=== PATIENT | male | born 1985 | race Caucasian/White ===

== ENCOUNTER → 2019-12-18 14:58 | Outpatient (CLI) | payer OTHER, SELFPAY ==
[2019-12-18 17:58] LABS: AST(SGOT) 29 U/L (15-37); Alanine Aminotransfer ALT/SGPT 74 U/L (16-61); Albumin, Serum 3.9 g/dL (3.2-5.0); Alkaline Phosphatase 116 U/L (45-117); Anion Gap 6 (5-15); BUN 10 mg/dL (7-18); BUN/Creat Ratio 10.8 RATIO (10-20); CRP 3.34 mg/L (0.0-3.0); Calcium,Total 8.5 mg/dL (8.5-10.1); Chloride 103 mmol/L (98-107); Creatinine, Serum 0.93 mg/dL (0.70-1.30); EST Glomerular Filtration Rate 98 mL/min (>60); Est Glom Filt Rate - Afr Amer 119 mL/min (>60); Globulin 3.8 g/dL (2.2-4.2); Glucose 89 mg/dL (74-106); Potassium 3.7 mmol/L (3.5-5.1); Protein, Total 7.7 g/dL (6.4-8.2); Sodium Level 138 mmol/L (136-145)
[2019-12-18 18:01] LABS: Hematocrit 48.2 % (40-54); Hemoglobin 15.8 g/dL (13.0-16.5); Mean Corp Hgb Conc 32.8 g/dL (32-36); Mean Corpuscular Hgb 29.4 pg (27.0-32.0); Mean Corpuscular Volume 89.8 fL (80-94); Mean Platelet Vol. 10.2 fl (6.2-12.0); Platelet Count 287 K/mm3 (150-450); RBC Distribution Width CV 11.8 % (11.6-14.6); Red Blood Count 5.37 M/mm3 (4.6-6.2); White Blood Count 8.1 K/mm3 (4.4-11.0)
[2019-12-18 18:07] LABS: Erythrocyte Sedimentation Rate 18 mm/hr (0-15)
== END ==
PROVIDERS: PCP Internal Medicine; Referring Provider Internal Medicine Gastroenterology; Visit Provider Internal Medicine Gastroenterology
DX: K51.90 Ulcerative colitis, unspecified, without complications (principal)
CPT/HCPCS: 36415; 80053; 85027; 85652; 86140

== ENCOUNTER 2021-08-16 14:00 | Outpatient (CLI) | payer OTHER, SELFPAY ==
[2021-08-16 15:33] LABS: Hematocrit 45.2 % (40-54); Hemoglobin 15.8 g/dL (13.0-16.5); Mean Corpuscular Hgb 29.9 pg (27.0-32.0); Mean Corpuscular Volume 85.4 fL (80-94); Mean Platelet Vol. 9.8 fl (6.2-12.0); Platelet Count 225 K/mm3 (150-450); RBC Distribution Width CV 11.8 % (11.6-14.6); RBC Distribution Width SD 36.6 fl (35.1-43.9); Red Blood Count 5.29 M/mm3 (4.6-6.2); White Blood Count 7.6 K/mm3 (4.4-11.0)
[2021-08-16 15:38] LABS: Erythrocyte Sedimentation Rate 9 mm/hr (0-20)
[2021-08-16 16:36] LABS: AST(SGOT) 30 U/L (15-37); Alanine Aminotransfer ALT/SGPT 47 U/L (16-61); Albumin, Serum 3.7 g/dL (3.2-5.0); Alkaline Phosphatase 71 U/L (45-117); Anion Gap 3 (5-15); BUN 12 mg/dL (7-18); BUN/Creat Ratio 14.4 RATIO (10-20); CRP < 2.90 mg/L (0.0-3.0); Calcium,Total 8.7 mg/dL (8.5-10.1); Chloride 105 mmol/L (98-107); Creatinine, Serum 0.83 mg/dL (0.70-1.30); EST Glomerular Filtration Rate 110 mL/min (>60); Est Glom Filt Rate - Afr Amer 133 mL/min (>60); Globulin 3.7 g/dL (2.2-4.2); Glucose 86 mg/dL (74-106); Potassium 3.6 mmol/L (3.5-5.1); Protein, Total 7.4 g/dL (6.4-8.2); Sodium Level 138 mmol/L (136-145)
== END 2021-08-16 23:59 | disposition home or self-care (01) ==
LOC: MTLAB 14:03
PROVIDERS: PCP Internal Medicine; Referring Provider Internal Medicine Gastroenterology; Visit Provider Internal Medicine Gastroenterology
DX: K51.90 Ulcerative colitis, unspecified, without complications (principal)
CPT/HCPCS: 36415; 80053; 85027; 85652; 86140

== ENCOUNTER 2022-10-30 15:20 | Emergency (ER) | payer OTHER, SELFPAY ==
[2022-10-30 15:21] VITALS: BP 127/83; PULSE 77; RESP 18; TEMP 35.3; O2SAT 97; BMI 41.3
--- NOTE | 2022-10-30 15:36 | EX.ED.DYSGE1 ---
HPI History of Present Illness Chief Complaint: Syncope COUNTS INCLUDE 234 BEDS AT THE [facility] PFS Medical History no medical history Home Medications NK 10/30/22 [History Last Taken Unknown] Allergy/AdvReac Type Severity Reaction Status Date / Time No Known Allergies Allergy Verified 10/30/22 15:22 Social History Smoking Status: Never smoker EXAM Physical Exam Const Vital Signs: 10/30/22 15:21 10/30/22 15:26 10/30/22 16:17 Temperature 95.6 F L Temperature Source Temporal Pulse Rate 77 65 Respiratory Rate 18 14 Respiratory Effort Short of Breath Respiratory Pattern Normal Blood Pressure 127/83 H 125/85 H Blood Pressure Mean 97 98 Pulse Ox 97 92 Oxygen Delivery Method Room Air Room Air 10/30/22 17:06 10/30/22 17:06 10/30/22 18:35 Temperature Temperature Source Pulse Rate 60 60 Respiratory Rate 14 17 Respiratory Effort Respiratory Pattern Blood Pressure 119/87 H 113/82 H Blood Pressure Mean 97 92 Pulse Ox 93 93 96 Oxygen Delivery Method Room Air Room Air Room Air MDM MDM MDM Narrative Medical decision making narrative: HISTORY OF PRESENT ILLNESS: 37-year-old male here with concern for going to pass out. The patient states he developed acute onset of lightheadedness, feel like he is got a pass out approximate hour prior to arrival. Denies any shortness of breath. Does note some chest discomfort and left shoulder discomfort. Denies vomiting. Denies any loss of consciousness. The patient denies recent surgery in the last 4 weeks or immobilization in the last 3 days, denies previous diagnosis of DVT or PE, hemoptysis, unilateral leg swelling or malignancy with treatment the last 6 months. No estrogen use noted. He denies family history of early cardiac . He denies any drug use such as cocaine or methamphetamine. Denies any lower extremity edema. Denies any recent volume loss such as vomiting or diarrhea. Denies any bleeding diathesis. Denies any recent cough fever chills REVIEW OF SYSTEMS: Pertinent positives: Lightheaded, near syncope Pertinent negatives: Syncope, headache, shortness of breath, lower extremity edema, focal weakness PHYSICAL EXAM: Nursing triage notes reviewed, Vital signs reviewed Constitutional: please see mdm HENT: MMM Eyes: Pupils equal round and reactive to light, Extraocular muscles intact Neck: No stridor, no JVD, full neck ROM Lungs: Clear to auscultation, No wheezing or rales. No increased work of breathing, no conversational dyspnea, no accessory muscle use, no nasal flaring. No respiratory distress noted Heart: Regular rate and rhythm, No murmurs, No rubs and No gallops, 2+ distal pulses (radial, femoral, posterior tibial) in all extremities Abdomen: Soft, there is no tenderness, rigidity, rebound or guarding, no obvious peritoneal signs, no palpable pulsatile abdominal masses, no auscultated abdominal bruit : No CVAT Extremities: No edema Neuro: Alert and oriented x3, neuro exam at baseline, cranial nerves II through XII are intact. No pain with extraocular muscle movement. There is negative test of skew. Normal speech. 5 of 5 strength in upper and lower extremities in flexion extension. Intact sensation to light touch in upper and lower extremity dermatomes. No truncal or extremity ataxia. No dysdiadochokinesia. Normal gait. 2+ reflexes. No meningeal signs. Negative Babinski. NIH of 0 Skin: No rash or lesions noted MEDICAL DECISION MAKING: Chief Complaint: Lightheaded, feeling like he is going to pass out External records reviewed: No recent ED visits or hospitalizations MDM Narrative: Patient was hemodynamically stable, afebrile, nontoxic-appearing. Exam without focal neurologic deficits. No focal cardiopulmonary abnormalities I considered the following differential diagnosis: Arrhythmia, anemia, ED electrolyte abnormality, , dehydration, PE I considered PE as a potential cause of the patient's near syncope however he had no risk factors. PERC negative, low risk Wells score, low clinical gestalt. Given his low risk I did not think it was necessary at this time to obtain a CTA of the chest. I gave the patient 1 L normal saline for resuscitation. I ordered labs and images to further elucidate the etiology of the patient's complaints. Labs images were remarkable for no evidence of severe anemia. BMP showed hypokalemia, there is no significant anion gap or SUJATHA. Troponin was negative x2. There are no signs of any life limiting etiology. I replace patient's potassium. Encourage potassium rich diet. Encouraged outpatient follow-up. The patient has no structural heart disease, no arrhythmia on EKG, no telemetry events, normal vitals, no focal cardiopulmonary normality he is not significantly anemic and as such he is appropriate for outpatient follow-up for potentially an echocardiogram or Holter monitor. This can be done safely as an outpatient. Factors affecting care: Hypokalemia Social determinants of health: Never smoker History obtained from others: The patient significant other Shared decision making: I will have a discussion with the patient and or visitors regarding risk/benefits of further testing or admission. They will be made aware of of the risk/benefits inherent in this decision they will be given the opportunity to voice understanding. Consults: None Lab Data Attestation: I reviewed the patient's lab results. Lab results narrative: EKG with normal sinus rhythm, left axis deviation, normal intervals, no STEMI BMP with hypokalemia, no anion gap to suggest endorgan hypoperfusion, no acute kidney Troponin is negative, no evidence of myocardial ischemia, delta troponin negative (0% 90 day mortality) CBC with leukocytosis suggestive of systemic inflammation, no anemia or thrombocytopenia noted Labs: Laboratory Results - last 24 hr 10/30/22 10/30/22 10/30/22 15:25 15:25 17:43 WBC 11.2 H RBC 5.40 Hgb 16.0 Hct 47.3 MCV 87.6 MCH 29.6 MCHC 33.8 RDW Std Deviation 37.3 RDW Coeff of Garcia 11.8 Plt Count 263 MPV 10.3 Immature Gran % (Auto) 0.900 Neut % (Auto) 44.4 L Lymph % (Auto) 38.9 [place] % (Auto) 12.8 H Eos % (Auto) 2.3 Baso % (Auto) 0.7 Absolute Neuts (auto) 5.0 Absolute Lymphs (auto) 4.36 Nucleated RBC % 0 Sodium 141 Potassium 3.0 L Chloride 108 H Carbon Dioxide 22.0 Anion Gap 11 BUN 11 Creatinine 1.04 Estim Creat Clear Calc 96.31 Est GFR (MDRD) Af Amer 103 Est GFR (MDRD) Non-Af 85 BUN/Creatinine Ratio 10.6 Glucose 129 H Calcium 8.9 Troponin I High Sens 3 3 Radiography Chest X-Ray - ED: Read by ED Physician Diagnostic Testing: Clinical Impression(s) from Imaging Studies Chest X-Ray 10/30/22 16:20 IMPRESSION: No definite acute or significant abnormality seen. Electronically Signed: Jeancarlos Frausto MD at 16:33 EDT , I have personally reviewed the patient's chest x-ray. Chest x-ray is unremarkable for pulmonary edema, pneumothorax, pneumonia or focal cardiopulmonary abnormality. Discharge Plan Triage Chief Complaint: Syncope ED Provider: Giovany Fernández Dx/Rx/DC Orders Clinical Impression: Near syncope, Acute hypokalemia Instructions: Causes of Syncope, High Potassium Diet Dc, ED Hypokalemia Prescriptions: No Action NK Primary Care Provider: Francie Xiao Referrals: Francie Xiao, [Primary Care Provider] - Activity Restrictions/Additional Instructions: Thank you for trusting us with your care today! Please take Tylenol (2 pills, 650 mg), ibuprofen (2 pills, 400 mg) every 6 hours as needed for pain and fever control. Please add potassium rich foods to your diet which include kale, leafy green vegetables, cantaloupe or bananas. Electrolyte rehydration solution such as Pedialyte, body armor, Gatorade also contain potassium. Please consider adding these to your diet as tolerated. Please return to the emergency department if your symptoms change or worsen. Please follow with your primary care physician for further outpatient evaluation and management. Disposition Disposition: Home, Self Care Discharge Date/Time: 10/30/22 19:06
--- NOTE | 2022-10-30 16:09 | EKG12_ITS ---
Test Reason : SYNCOPE Blood Pressure : / mmHG Vent. Rate : 077 BPM Atrial Rate : 077 BPM P-R Int : 188 ms QRS Dur : 102 ms QT Int : 406 ms P-R-T Axes : 032 -40 009 degrees QTc Int : 459 ms Normal sinus rhythm Left axis deviation Pulmonary disease pattern Abnormal ECG When compared with ECG of 25-JUN-2010 17:12, No significant change was found Confirmed by AVA HARRELL, SABINA ([id number]), editor magazine DK JOHNSON ([id number]) on 11/02/2022 8:36:13 AM Referred By: SONY Confirmed By:SABINA ESCALANTE MD
[2022-10-30] MEDS: 0.9% Normal Saline 1,000 ML 1000 ML IV (16:16)
[2022-10-30 16:17] VITALS: BP 125/85; PULSE 65; RESP 14; O2SAT 92
--- NOTE | 2022-10-30 16:20 | RAD_ITS ---
STUDY: X-RAY CHEST REASON FOR EXAM: Male, 37 years old. chest pain TECHNIQUE: Single AP portable view of the chest. COMPARISON: None. FINDINGS: The lungs are clear and expanded. There is no demonstrated pleural abnormality. Normal size heart. Normal mediastinum and caterina. Normal visualized pulmonary arteries. Normal visualized aortic arch and descending thoracic aorta. Normal visualized thoracic spine. Normal visualized ribs, clavicles, and shoulders. There is no demonstrated abnormality of the visualized soft tissue structures of the upper abdomen. RAD/Chest 1 View (Portable) IMPRESSION: No definite acute or significant abnormality seen. Electronically Signed: Jeancarlos Frausto MD at 16:33 EDT ,
[2022-10-30 16:28] LABS: Absolute Lymphocyte Count 4.36 X10^3/uL (0.83-4.51); Basophil# 0.08 X10^3/uL; Basophil% 0.7 % (0-1); Eosinophil# 0.26 X10^3/uL; Eosinophils% 2.3 % (0-5); Hematocrit 47.3 % (40-54); Lymphocyte # 4.36 X10^3/ul (0.83-4.51); Lymphocyte % 38.9 % (19-41); Mean Corp Hgb Conc 33.8 g/dL (32-36); Mean Corpuscular Hgb 29.6 pg (27.0-32.0); Mean Corpuscular Volume 87.6 fL (80-94); Mean Platelet Vol. 10.3 fl (6.2-12.0); Monocyte# 1.44 X10^3/uL; Monocyte% 12.8 % (0-10); NRBC Flagged by Analyzer 0 % (0-5); Neutrophil # 4.97 X10^3/uL (2.7-7.7); Neutrophil % 44.4 % (47-70); Platelet Count 263 K/mm3 (150-450); RBC Distribution Width CV 11.8 % (11.6-14.6); RBC Distribution Width SD 37.3 fl (35.1-43.9); White Blood Count 11.2 K/mm3 (4.4-11.0)
[2022-10-30 17:04] LABS: Anion Gap 11 (5-15); BUN 11 mg/dL (7-18); BUN/Creat Ratio 10.6 RATIO (10-20); Calcium,Total 8.9 mg/dL (8.5-10.1); Chloride 108 mmol/L (98-107); Creatinine, Serum 1.04 mg/dL (0.70-1.30); EST Glomerular Filtration Rate 85 mL/min (>60); Est Glom Filt Rate - Afr Amer 103 mL/min (>60); Estimated Creatinine Clearance 96.31 ml/min; Glucose 129 mg/dL (74-106); Sodium Level 141 mmol/L (136-145); Troponin-I HS (w/2H Reflex) 3 pg/mL (3.0-78.0)
[2022-10-30 17:06] VITALS: BP 119/87; PULSE 60; RESP 14; O2SAT 93
[2022-10-30] MEDS: Potassium Chloride Oral Tablet 20 MEQ 40 MEQ PO (17:47)
[2022-10-30 18:22] LABS: Reflex Troponin-HS? (from REC) Y
[2022-10-30 18:35] VITALS: BP 113/82; PULSE 60; RESP 17; O2SAT 96
[2022-10-30 18:38] LABS: Troponin-I HS 3 pg/mL (3.0-78.0)
== END 2022-10-30 19:06 | disposition home or self-care (01) ==
PROVIDERS: Emergency Provider Emergency Medicine; PCP Internal Medicine; Visit Provider Emergency Medicine
DX: R55 Syncope and collapse (principal); E87.6 Hypokalemia
CPT/HCPCS: 71045; 80048; 84484; 85025; 93005; 96360; 99284; J7030; A4216

== ENCOUNTER 2022-11-29 10:34 | Emergency (ER) | payer OTHER, SELFPAY ==
[2022-11-29 10:35] VITALS: BP 138/98; PULSE 64; RESP 24; TEMP 35.9; O2SAT 98; BMI 41.3
--- NOTE | 2022-11-29 10:47 | EKG12_ITS ---
Test Reason : SOB Blood Pressure : / mmHG Vent. Rate : 057 BPM Atrial Rate : 057 BPM P-R Int : 184 ms QRS Dur : 100 ms QT Int : 420 ms P-R-T Axes : 022 -26 023 degrees QTc Int : 408 ms Sinus bradycardia Otherwise normal ECG Confirmed by JONI HRARELL, SHAYNA ([id number]), editor & co founder DK JOHNSON ([id number]) on 12/02/2022 9:53:31 AM Referred By: Confirmed By:ZAIDA QUINONES MD
--- NOTE | 2022-11-29 10:48 | ED.VIS.DYS ---
HPI History of Present Illness Chief Complaint: Shortness of Breath Narrative Narrative: 37-year-old male past medical history of anxiety and panic attacks, is currently taking escitalopram and lorazepam as needed, presents with panic attack-like symptoms. He states he was seen in the emergency department 3 weeks ago and diagnosed with hypokalemia. He is followed up with his primary care provider who recommended that he follow-up with psychiatry. He presents today because he noticed that his heart rate was lower than usual, and he feels tightness in his chest, and overall anxiety that something is wrong. He states he is short of breath but denies any fevers or chills, no cough, this is the same way that he has been feeling over the past few weeks. [facility] Medical History (Updated 11/29/22 @ 12:12 by Sreekanth Gillespie MD) Anxiety Home Medications albuterol sulfate 90 mcg/actuation aerosol inhaler (Ventolin HFA) 1 - 2 puff inhalation Q4H PRN PRN Wheezing #1 ea 11/29/22 [Rx Last Taken Unknown] azithromycin 250 mg tablet (Zithromax Z-Maurilio) See Rx Instructions PO .COMPLEX #6 tabs 11/29/22 [Rx Last Taken Unknown] escitalopram oxalate 5 mg tablet 5 mg PO DAILY 11/29/22 [History Last Taken Unknown] lorazepam 0.5 mg tablet 0.5 mg PO DAILY 11/29/22 [History Last Taken Unknown] Allergy/AdvReac Type Severity Reaction Status Date / Time No Known Allergies Allergy Verified 11/29/22 10:39 Social History Smoking Status: Never smoker ROS ROS ED ROS Narrative Constitutional: No fever, no chills. HEENT: No sore throat. No neck pain. No loss of vision. No rhinorrhea. Cardiovascular: Positive chest tightness chest pain. Occasional palpitations. No pedal edema. Respiratory: No cough, positive shortness of breath. Abdominal: No abdominal pain. No nausea. No vomiting. Genitourinary: No dysuria. No hematuria. Musculoskeletal: No myalgias. No arthralgias. Neurologic: No headaches. No dizziness. No lightheadedness. Skin: No rash. No change in color. Psychiatric: No depression. Positive anxiety. Positive panic attacks. Overall feeling that something is wrong. EXAM Physical Exam Narrative Exam Narrative: Afebrile. Vital signs noted. HEENT: Normocephalic. Atraumatic. PERRL, EOMI. Neck soft and supple. No point tenderness or step off. Cardiovascular: Regular rate and rhythm. No murmurs, rubs, or gallops appreciated. Respiratory: No tachypnea. Lungs clear to auscultation bilaterally. Gastrointestinal: Abdomen soft, nontender, with normoactive bowel sounds. No rebound or guarding. Neurological: Awake. Alert. Nonfocal, nonlateralizing. Skin: No rash. Normal color. No pallor. Musculoskeletal: No pedal edema. Full range of motion extremities. Psychiatric: Mild anxiety Const Vital Signs: 11/29/22 10:35 11/29/22 11:12 Temperature 96.7 F L Temperature Source Temporal Pulse Rate 64 Respiratory Rate 24 H Respiratory Effort Short of Breath Respiratory Depth Normal Respiratory Pattern Normal Blood Pressure 138/98 H Blood Pressure Mean 111 Pulse Ox 98 Oxygen Delivery Method Room Air Room Air MDM MDM MDM Narrative Medical decision making narrative: I reviewed the patient's prior ED visit. He is currently taking a benzodiazepine as needed and is on long-term medication. His symptoms do sound more like anxiety and panic attacks. I have low suspicion for pulmonary embolism as he has a normal pulse of 64, and his pulse ox is 98% on room air. While he has slight elevation of his blood pressure at 138/98, this could be secondary to anxiety. I will repeat an EKG along with laboratory work to make sure he does not have a hypokalemia or other electrolyte abnormality. I feel that a single high-sensitivity troponin would help rule out coronary artery disease as this is greater than a 6-hour troponin. He was bolused normal saline 1 L intravenously. EKG was in pain and interpreted by myself, demonstrates normal sinus rhythm and bradycardia without acute ST changes, no STEMI. I reviewed his laboratory work from today and he has a normal white count of 5.5, hemoglobin 16.0, normal platelet count of 221. Electrolyte panel shows normal potassium of 3.6 with chloride slightly elevated at 109 which I think is nonspecific, normal BUN and normal creatinine. Glucose is appropriately elevated at 128 with a normal anion gap of 5. I do not feel he is in diabetic ketoacidosis. Additionally, his high-sensitivity troponin is 5. This is greater than a 6-hour troponin. I do not feel that serial enzymes are indicated. In the interpretation of his chest x-ray, my individual interpretation shows no evidence of pneumothorax. I reviewed the radiology report which shows increased lung markings in the left upper lobe. Patient does state that he has had a cough over the last few weeks, but he does not have a fever or white count. I discussed with him atypical pneumonia. He will be given an albuterol inhaler for his shortness of breath and treated with azithromycin for 5 days. He will follow-up with his primary care provider for repeat chest x-ray to show resolution of the left upper lobe increased lung markings. I am not concerned for pulmonary embolism and think that a lot of his symptoms are related to anxiety. He will follow-up with psychiatry as well. He feels well and will be discharged. Return instructions were reviewed. Disposition is discharged home in stable condition. History & Record Review Discussion w/independent historian: Patient Additional record(s) reviewed:: Prior ED visit and Prior labs Lab Data Attestation: I reviewed the patient's lab results. Labs: Laboratory Results - last 24 hr 11/29/22 11/29/22 11:15 11:15 WBC 5.5 RBC 5.37 Hgb 16.0 Hct 47.4 MCV 88.3 MCH 29.8 MCHC 33.8 RDW Std Deviation 37.7 RDW Coeff of Garcia 11.9 Plt Count 221 MPV 9.6 Immature Gran % (Auto) 1.100 H Neut % (Auto) 65.6 Lymph % (Auto) 19.3 [place] % (Auto) 10.3 H Eos % (Auto) 3.2 Baso % (Auto) 0.5 Absolute Neuts (auto) 3.6 Absolute Lymphs (auto) 1.07 Nucleated RBC % 0 Sodium 139 Potassium 3.6 Chloride 109 H Carbon Dioxide 25.0 Anion Gap 5 BUN 12 Creatinine 0.95 Estim Creat Clear Calc 105.43 Est GFR (MDRD) Af Amer 114 Est GFR (MDRD) Non-Af 94 BUN/Creatinine Ratio 12.6 Glucose 128 H Calcium 8.8 Troponin I High Sens 5 Radiography Diagnostic Testing: Clinical Impression(s) from Imaging Studies Chest X-Ray 11/29/22 11:17 IMPRESSION: Focal increased markings in the left upper lobe. Follow-up is recommended. Electronically Signed: Hola Clifford MD at 12:01 EDT , Discharge Plan Triage Chief Complaint: Shortness of Breath ED Provider: Sreekanth Gillespie Dx/Rx/DC Orders Clinical Impression: Anxiety, SOB (shortness of breath) Prescriptions: New azithromycin [Zithromax Z-Maurilio] 250 mg tablet See Rx Instructions .ROUTE .COMPLEX Qty: 6 0RF Rx Instructions: For 250 mg dose pack: take 500 mg today (day 1), then 250 mg for 4 days (days 2-5) albuterol sulfate [Ventolin HFA] 90 mcg/actuation HFA aerosol inhaler 1 - 2 puff inhalation Q4H PRN PRN (Reason: Wheezing) Qty: 1 0RF No Action lorazepam 0.5 mg tablet 0.5 mg PO DAILY Label Comments: TAKE 1 TABLET BY MOUTH EVERY DAY escitalopram oxalate 5 mg tablet 5 mg PO DAILY Label Comments: TAKE 1 TABLET BY MOUTH EVERY DAY Primary Care Provider: Sadaf Morton Referrals: Francie Xiao DO [Med Staff - [facility] [employer]] - Sadaf Morton, DOUPER-C [Primary Care Provider] - 3-5 Days if not improving Disposition Disposition: Home, Self Care
[2022-11-29] MEDS: 0.9% Normal Saline 1,000 ML 999 ML IV (11:16)
--- NOTE | 2022-11-29 11:17 | RAD_ITS ---
STUDY: X-RAY CHEST REASON FOR EXAM: Male, 37 years old. Shortness of Breath TECHNIQUE: Single AP portable view of the chest. COMPARISON: Comparison is made with prior study dated October 30, 2022. FINDINGS: EKG electrodes are seen. Focal increased markings are seen in the left upper lobe. This has progressed as compared to prior study. Radiographic follow-up is recommended. There is no demonstrated pleural abnormality. Normal size heart. Normal mediastinum and caterina. Normal visualized pulmonary arteries. Normal visualized aortic arch and descending thoracic aorta. Normal visualized thoracic spine. Normal visualized ribs, clavicles, and shoulders. There is no demonstrated abnormality of the visualized soft tissue structures of the upper abdomen. RAD/Chest 1 View (Portable) IMPRESSION: Focal increased markings in the left upper lobe. Follow-up is recommended. Electronically Signed: Hola Clifford MD at 12:01 EDT ,
[2022-11-29 11:22] LABS: Absolute Lymphocyte Count 1.07 X10^3/uL (0.83-4.51); Absolute Neutrophil Count 3.6 X10^3/uL (2.0-7.7); Basophil# 0.03 X10^3/uL; Basophil% 0.5 % (0-1); Eosinophil# 0.18 X10^3/uL; Eosinophils% 3.2 % (0-5); Hematocrit 47.4 % (40-54); Lymphocyte # 1.07 X10^3/ul (0.83-4.51); Lymphocyte % 19.3 % (19-41); Mean Corp Hgb Conc 33.8 g/dL (32-36); Mean Corpuscular Hgb 29.8 pg (27.0-32.0); Mean Corpuscular Volume 88.3 fL (80-94); Mean Platelet Vol. 9.6 fl (6.2-12.0); Monocyte# 0.57 X10^3/uL; Monocyte% 10.3 % (0-10); NRBC Flagged by Analyzer 0 % (0-5); Neutrophil # 3.63 X10^3/uL (2.7-7.7); Neutrophil % 65.6 % (47-70); Platelet Count 221 K/mm3 (150-450); RBC Distribution Width CV 11.9 % (11.6-14.6); RBC Distribution Width SD 37.7 fl (35.1-43.9); Red Blood Count 5.37 M/mm3 (4.6-6.2); White Blood Count 5.5 K/mm3 (4.4-11.0)
[2022-11-29 11:38] LABS: Anion Gap 5 (5-15); BUN 12 mg/dL (7-18); BUN/Creat Ratio 12.6 RATIO (10-20); Calcium,Total 8.8 mg/dL (8.5-10.1); Chloride 109 mmol/L (98-107); Creatinine, Serum 0.95 mg/dL (0.70-1.30); EST Glomerular Filtration Rate 94 mL/min (>60); Est Glom Filt Rate - Afr Amer 114 mL/min (>60); Estimated Creatinine Clearance 105.43 ml/min; Glucose 128 mg/dL (74-106); Potassium 3.6 mmol/L (3.5-5.1); Sodium Level 139 mmol/L (136-145); Troponin-I HS 5 pg/mL (3.0-78.0)
[2022-11-29 12:49] VITALS: RESP 16
== END 2022-11-29 12:49 | disposition home or self-care (01) ==
PROVIDERS: Emergency Provider Emergency Medicine; PCP Nurse Practitioner Family; Visit Provider Emergency Medicine
DX: F41.9 Anxiety disorder, unspecified (principal); R06.02 Shortness of breath; Z79.899 Other long term (current) drug therapy
CPT/HCPCS: 71045; 80048; 84484; 85025; 93005; 99284; J7030; A4216

== ENCOUNTER → 2022-12-19 | Outpatient (CLI) | payer OTHER, SELFPAY ==
[2022-12-19 10:00] LABS: Absolute Lymphocyte Count 2.18 X10^3/uL (0.83-4.51); Absolute Neutrophil Count 3.3 X10^3/uL (2.0-7.7); Basophil# 0.04 X10^3/uL; Basophil% 0.6 % (0-1); Eosinophil# 0.33 X10^3/uL; Eosinophils% 4.9 % (0-5); Hematocrit 48.3 % (40-54); Hemoglobin 16.5 g/dL (13.0-16.5); Lymphocyte # 2.18 X10^3/ul (0.83-4.51); Lymphocyte % 32.3 % (19-41); Mean Corp Hgb Conc 34.2 g/dL (32-36); Mean Corpuscular Hgb 29.9 pg (27.0-32.0); Mean Corpuscular Volume 87.7 fL (80-94); Mean Platelet Vol. 9.7 fl (6.2-12.0); Monocyte# 0.87 X10^3/uL; Monocyte% 12.9 % (0-10); NRBC Flagged by Analyzer 0 % (0-5); Neutrophil # 3.27 X10^3/uL (2.7-7.7); Neutrophil % 48.6 % (47-70); Platelet Count 237 K/mm3 (150-450); RBC Distribution Width CV 11.9 % (11.6-14.6); RBC Distribution Width SD 38.1 fl (35.1-43.9); Red Blood Count 5.51 M/mm3 (4.6-6.2); White Blood Count 6.7 K/mm3 (4.4-11.0)
[2022-12-19 10:40] LABS: Vitamin B12 636 pg/mL (211-911); Vitamin D,25 Hydroxy 28.8 ng/mL
[2022-12-19 11:02] LABS: ALB/GLOB Ratio 0.9 RATIO (0.9-2.4); AST(SGOT) 32 U/L (15-37); Alanine Aminotransfer ALT/SGPT 74 U/L (16-61); Albumin, Serum 3.6 g/dL (3.2-5.0); Alkaline Phosphatase 76 U/L (45-117); Anion Gap 4 (5-15); BUN 11 mg/dL (7-18); Calcium,Total 8.1 mg/dL (8.5-10.1); Chloride 109 mmol/L (98-107); Cholesterol 169 mg/dL (200); Creatinine, Serum 0.91 mg/dL (0.70-1.30); EST Glomerular Filtration Rate 98 mL/min (>60); Est Glom Filt Rate - Afr Amer 119 mL/min (>60); Globulin 3.8 g/dL (2.2-4.2); Glucose 92 mg/dL (74-106); High Density Lipoprotein 43 mg/dL; Potassium 3.8 mmol/L (3.5-5.1); Protein, Total 7.4 g/dL (6.4-8.2); Sodium Level 138 mmol/L (136-145); Thyroid Stim Hormone (TSH) 1.81 uIU/mL (0.358-3.74); Triglycerides 119 mg/dL; Very Low Density Lipoprotein 24 mg/dL (5-40)
== END | disposition home or self-care (01) ==
LOC: MTLAB 08:20
PROVIDERS: PCP Nurse Practitioner Family; Referring Provider Nurse Practitioner Family; Visit Provider Nurse Practitioner Family
DX: E87.6 Hypokalemia (principal); R79.89 Other specified abnormal findings of blood chemistry; Z83.3 Family history of diabetes mellitus; Z13.21 Encounter for screening for nutritional disorder
CPT/HCPCS: 36415; 80053; 80061; 82306; 82607; 82746; 84443; 85025

== ENCOUNTER 2022-12-26 08:00 | Outpatient (RCR) | payer OTHER, SELFPAY ==
--- NOTE | 2022-12-26 09:00 | BH.COMM ---
Communication Note Communication with Client Communication Note: Met with pt and completed initial paperwork. No significant changes since pre-admission screening. [place] Suicide Screening completed with low risk. Consulted with Dr. Mendes with plan to admit to IOP with dx of F41.0
--- NOTE | 2022-12-26 09:00 | BH.SGPN.GN ---
Behaviors/Verbalizations/Mental Status: []Pt alert and oriented, neatly dressed and groomed. Eye contact good. Motor activity appropriate. Speech within normal limits. Affect congruent, mood nervous and hopeful. Thoughts linear, logical, no signs of hallucinations or delusions. Reviewed pt?s symptom tracker, no risk for suicidal ideation, plan, or intent as 12/26/22 Client Response/Progress/Benefit: []Pt responded well to session, attentive and engaged. Pt reports feeling anxious this morning as it is pt's first day of IOP tx. Pt shared he hopes that completing the program will show reduced panic attacks and anxiety for pt. Pt shared he has been struggling with panic attacks since the beginning of summer and this triggers a lot of guilt and negative self-talk. Pt shared he is beginning to learn what can help pt and pt is using skills like using noise canceling headphones to help with car rides. Pt appeared to benefit from reflecting on application of healthy coping skills. Pt will continue IOP tx to prevent decompensation, increase distress tolerance skills, and reduce safety behaviors that reinforce anxiety. Narrative Note: []
--- NOTE | 2022-12-26 10:15 | BH.SGPN.GN ---
Behaviors/Verbalizations/Mental Status: [] Eye contact is good. Motor activity is appropriate. Appearance is casual. Speech is Appropriate. Mood is anxious. Affect is congruent. Thoughts are linear and logical. No evidence of psychosis. Client Response/Progress/Benefit: [] Limited participation in group discussions however did complete worksheets on the topic. Attentive during psychoeducation. Attentive during interactive discussion on types of support. Group identified several forms of support which included; friends, family, therapy, professionals, support groups, co-workers, social media, spirituality, medications, local agencies, etc. Pt Attentive during the group discussion on the importance of support which they identified leads to; accountability, can motivate, decreased loneliness, connection with others, improved relationships, increased self-confidence, can lessen one's stress and responsibilities, and is fun/ distracting. Patient identified the obstacles/barriers to seeking support and utilizing the support they currently have in place which included fear of failure, feeling inadequate, afraid of hurting someone's view of me, struggles make me less of who I want to be. Benefited from increased awareness of healthy supports and the importance of balanced support. Will continue in IOP to prevent decompensation, stabilize anxiety, decrease intrusive thoughts, and stablize mood. Narrative Note: []
--- NOTE | 2022-12-26 11:15 | BH.SGPN.GN ---
Behaviors/Verbalizations/Mental Status: []Client alert and oriented, casually dressed and groomed. Eye contact good. Motor activity appropriate. Speech within normal limits. Affect congruent, mood depressed and anxious. Thoughts linear, logical, no signs of hallucinations or delusions. Client Response/Progress/Benefit: [] Client was a semi-active participant throughout AEB contributing some to group discussion, participating in the activity, and taking notes. Client provided input during discussion on the types of support our supports can provide (social, emotional, tangible, and informational). Able to identify the types of support pt?s own support system provides for them. Client reported gaining awareness that they could benefit from more emotional specific support. Shared this will help to provide him with having non-judgmental supports he can lean on when experiencing increased anxiety. Client identified steps to achieve this as identifying warning signs for anxiety, determining which supports would be best equipped to help in this situation, and challenging himself to increase comfort in reaching out. Client seemed to benefit from identifying support areas client could benefit from improving. Recommended to continue IOP tx to increase healthy coping repertoire, promote mood stability, and improve overall functioning. Narrative Note: []
--- NOTE | 2022-12-28 09:00 | BH.SGPN.GN ---
Behaviors/Verbalizations/Mental Status: []Pt alert and oriented, casually dressed and groomed. Eye contact good. Motor activity appropriate. Speech within normal limits. Affect congruent, mood anxious and euthymic. Thoughts linear, logical, no signs of hallucinations or delusions. Reviewed pt?s symptom tracker, no risk for suicidal ideation, plan, or intent as 12/28/22 Client Response/Progress/Benefit: []Pt responded well to session, open to contributing with group and engaged. Pt reports feeling nervous this morning and pt stated he plans to listen to a podcast this afternoon to aid in reducing anxiety associated with his upcoming drive he is anxious about. Pt's mental health wins today included going out to dinner with his family despite feeling anxious about doing so, noting that engaging with his sons during the meal helped with reducing overall anxiety. Additional win noted as continuing to use healthy levels of opposite action/exposure to address his anxiety. Pt appeared to benefit from reflecting on mental health wins. Pt will continue IOP tx to promote mood stability, reduce negative thinking patterns, and increase use of calming skills. Narrative Note: []
--- NOTE | 2022-12-28 10:30 | BH.NA_ITS ---
Physical Data Vital Signs Pulse Rate: 66 Blood Pressure: 162/96 Height/Weight Height: 1.75 m Weight:: 127.006 kg Weight in Pounds: 280.0 lbs Current Medication Compliance Medication Compliance Do you take your medication as prescribed?: Yes Nutritional History Appetite Nutritional Instructions: Describe your appetite:: Good (Client states he noted a decrease in appetite when he first started Lexapro, but states his appetite is returning.) Functional Assessment Sleep Pattern Describe any problems with sleeping: Client states he sleeps about 7 hours per night. Activities Motor Activity:: Functional Sensory/Communication Assess Communication Problems Do you have difficulty understanding what people are saying?: No Medical Problems/History Gastrointestinal Conditions Gastrointestinal: Other (See comments) (UC, GERD) Musculoskeletal Conditions Musculoskeletal: Other (See comments) (history of sciatica) Pain Assessment Do you have acute or chronic pain?: No Surgical History Surgical History Have you had any surgeries? If so, list type and date:: No Substance Abuse Substance Abuse Please describe substance abuse in the last 30 days:: Client denies alcohol, tobacco or substance use. Client states he has decreased his caffeine intake and currently drinks 1 cup of coffee per day and changed from regular soda to decaff. Mental Status Summary Mental Status Significant Findings/Observations on Appearance and Mood:: Client is alert and oriented x 4. Client is casually groomed. Client is cooperative with assessment. Client makes good eye contact. Client's voice has normal rate and volume. Client has appropriate affect. Client makes logical associations and has normal processing. Client denies delusions/hallucinations. Client denies SI. Suicide Assessment Suicidal Ideation Are you currently or have you been suicidal in the past?: No Suicidal Intentional Rating Scale (SIRS): No suicidal thoughts (past or present) Physician Notification Past Psychiatric History MH Treatment Hx Past Psychiatric Medications:: Only Lexapro that he started in November 2022 Age of first mental health symptoms: Client states he first felt anxious and had panic attacks in his 20's, but states it had never been debilitating as it is now. Describe (age, circumstance, etc) any past hospitalizations: None. Current providers for mental health treatment (counselor, psychiatrist, pillowcase cleaner, etc.): Has a future appointment in May 2023 to establish care with Dr. Fraga for psychiatry Fall Risk Assessment Age Age: Less than 60 Mental Status Mental Status: Willing & able to ask for assistance when needed Physical Status Physical Status: No problems Impairments Impairments: None Elimination Elimination: Continent AND independent Gait or Balance Gait or Balance: Walks independently Hx of Falls History of falls in the past 6 months: No known history Medications/Substances Psychotropics:: Antidepressants RN Summary of Impressions Impressions Recommendations Impressions: Psychiatric Issues: 1. Panic Disorder 2. Generalized Anxiety Disorder Level of Care How do the client's current symptoms and functional deficits support need for this level of care?: Client was referred to IOP by his PCP after two recent ER visits related to panic attacks. Client states he had been having frequent panic attacks, and he states that the signs of his panic attacks mimicked HI symptoms he saw his dad have. Client states this made him feel like every panic attack could be an HI. Client states when his panic attacks were at their worst in the last few weeks, he felt like he had to be near a hospital while he had one and he was too anxious to drive or be in a car. Client states he now has not had a panic attack in 2 weeks after his Lexapro was increased to 10mg daily and he has rarely had to take his PRN Ativan now. Client does report some isolation and some racing thoughts related to anxiety. Client denies SI. IOP will promote gains and prevent further decompensation while providing social support and skills training.
--- NOTE | 2022-12-28 11:10 | BH.SGPN.GN ---
Behaviors/Verbalizations/Mental Status: [] Eye contact is good. Motor activity is appropriate. Appearance is casual. Speech is Appropriate. Mood is anxious. Affect is congruent. Thoughts are linear and logical. No evidence of psychosis. Client Response/Progress/Benefit: [] Pt was an active participant in group discussions and experiential activity. Attentive during psychoeducation. Patient participated during interactive discussion on strategies to overcome several obstacles to mental wellness including People-pleasing, Low Self-esteem, unhealthy coping skills, isolation, loneliness, and negative thinking. Pt choose the barrier of negative thinking to work on this week and identified strategies to incorporate including mindfulness and being more present, honest communication, and starting an accomplishment journal. Benefited from increased awareness of obstacles to mental wellness and strategies to help overcome those obstacles. Will continue in IOP to prevent decompnesation, decrease panic attacks, improve functioing, and increase healthy coping skills. Narrative Note: []
[2022-12-28 11:23] VITALS: BP 162/96; PULSE 66
--- NOTE | 2022-12-28 12:23 | PCM.BH.PSYEV ---
Psychiatric Evaluation Initial Evaluation Initial Evaluation: History of present illness: The patient is a 37-year-old male with a history of anxiety and panic disorder who was referred Monday by his primary care doctor to the [facility] behavioral health IOP program after 2 emergency visits recently for panic attacks. The patient has been for 13 years and currently lives with his and 2 children ages 10 and 6. For primary support he has his and a friend. At the end of October 2022, the patient had his first panic attack ever and went to the emergency room as he was having shortness of breath, chest tightness, increased heart rate and feelings of impending doom to the point where the patient felt like he might . 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 At the time of the panic attack the patient was drinking diet [employer] Dew at least 316 ounce bottles a day but he has since decreased his caffeine use to 1 coffee in the morning patient then was placed on Lexapro 5 mg after seeing his primary care doctor but the patient had another severe panic attack on November 29, 2022 and went to the emergency room again with chest tightness, shortness of breath, what he thought was decreased heart rate and feeling like something is wrong. At this second ER visit he had an EKG, chest x-ray, troponins and other work-up and all was negative and they felt it was due to anxiety. Since then the patient states that he had had a constant feeling of impending doom and fear of having a heart attack when he did feel panicky. He began checking his pulse a lot and it began to be hard for him to drive or to be in a car since that was the site of his first panic attack. The patient was unable to be alone at 1 point and was waking up anxious in the morning. It was hard for him to function and do anything social due to worry about having another panic attack. The patient's father had a number of heart attacks and the patient witnessed his father having these when he was younger. The patient's father's first heart attack was in the summer and the weather was very hot at the time and the patient feels this may have triggered his first panic attack but he is uncertain. The patient thought he was ruining my family summer. The patient states that his primary care doctor increased his Lexapro dose 2 weeks ago and it has improved his symptoms greatly. He feels that now his mood is not depressed just mildly stressed. He denies hopelessness, worthlessness but does endorse that he still feels guilty. Appetite was decreased but has resumed to normal now. He was anhedonic when he was having the panic attacks and going to the emergency room in November but he is now enjoying baseball and swimming again with his children. His sleep was decreased but now has improved to 7 hours a night and he is able to travel now with his family. Energy level is good now and concentration is good. He was and remains terrified of dying but he states that in the last week he has not been checking his heart rate and he is less afraid of having a heart attack although he is still worried about it somewhat. He denies passive thoughts of , suicidal ideation, plan for suicide, homicidal ideation, hallucinations, delusions or symptoms of marquis ever. He is a worrier by nature but has not had any panic attacks since 3 weeks ago and had his first 1 on November 10, 2022 in the car. He also denies any history of self-harm, OCD, eating disorder, trauma or PTSD. Current Psychiatric Medications: [] Lexapro 10 mg p.o. daily (on this dose for 2 weeks now, on the med for 1 month total) (; Ativan 0.5 mg p.o. as needed for panic attack (took it twice in the past week but was taking it daily when it was first prescribed in mid November). Past Psychiatric History: [] No psych admits ever. No suicide attempts ever. Medications are from his primary care doctor Dr. Morton. First panic attack was end of October 2022. Denies depression ever. No psych meds except as noted above with the Lexapro and the Ativan. No counseling ever. Substance Use History: [] No drug use. Non-smoker. No vaping. No marijuana. Alcohol less than once a year. Allergies: [] No known allergies Medications: [] Balsalazide as needed for occasional stomach issues. Was on Zithromax and a Ventolin inhaler for a possible atypical pneumonia diagnosed on check stress rate in November but has completed this treatment and follow-up chest x-ray was normal). Past Medical History: [] Obesity, GERD, occasional colitis issues but not UC or Crohn's. No surgery ever. Normal sexual function. Heterosexual. Family Psychiatric History: [] Mom and dad are both in their 70s and alive. Sister has depression. Parents may have anxiety and depression but they are untreated. No substance issues in the family. No suicides in the family. Personal/Social History: [] Patient was born and raised in [place] and describes his childhood as good, active. He played a lot of sports and did a lot of outdoor activities. His parents were and are and were loving to him. He denies any verbal, physical or sexual abuse. He has 1 sister 4 years older than him and they are close. He did well in school and his grades were good. He graduated high school and went to college to get an elementary education degree. He got at age 24 and his marriages lasted 13 years and he describes it as good. He has 2 children and they are healthy. His is 34 years old and works from home in [place]. He had no other serious girlfriends. No abuse in any relationships. Legal History: [] No arrests. 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 No DUIs. Review of Systems: [] He has occasional GI and colon symptoms and occasional pain but otherwise review of systems is negative except as noted in present illness. Vital Signs: [] Vital signs and exam are reviewed in the medical records and in the nurses notes and updated and the patient is deemed medically able to participate in the IOP program. Mental Status Examination: [] The patient is a 37-year-old male who is obese and wears glasses and otherwise appears normal for stated age and is casually dressed and groomed with good hygiene. He is ambulatory with a normal gait and has no psychomotor agitation or retardation. Eye contact is good and speech is normal rate and rhythm and fluent with no pressure. Mood is anxious. Affect is full and normal. Thought process is goal-directed and organized. Thought content: There is evidence of the that the patient is afraid of dying and is still somewhat afraid of having a heart attack but much less so than several weeks ago. There is no evidence of passive thoughts of , suicidal ideation, plan for suicide, homicidal ideation, hallucinations, delusions or symptoms of marquis ever. Reality testing is intact. Intelligence is above average. Judgment is intact. Insight: Good. Impulsivity: Moderate. Diagnoses: [] 1. Panic disorder 2. Generalized anxiety disorder 3. Work and health issues Plan: [] The patient will start the IOP program at [facility] in behavioral health as the structure, support, education and group therapy will hopefully prevent worsening of the symptoms. He felt safe during the interview and if it anytime he does not feel safe he will let us know or go to the emergency room. The risks, options, possible complications and side effects of the medications were discussed with the patient and he understands and accepts these. No medication changes were made today as the medications were dose was changed 2 weeks ago. He will continue to attempt to walk daily for exercise. He agrees to try to limit his Ativan use over the next few weeks and take it only when absolutely needed. He will continue to follow-up with his outpatient providers and I will see the patient in follow-up in 2 weeks.
--- NOTE | 2022-12-28 12:36 | BH.DR.ITP ---
Initial Treatment Plan Patient Information Visit Information: ADMISSION DATE: EXPECTED LOS: 4-6 weeks Problems/Symptoms Problem #1:: Anxiety Symptom:: Panic attacks, worry, rumination, fear of dying
--- NOTE | 2022-12-28 14:26 | BH.MDN_ITS ---
Multi-Disciplinary Note Note 30-min Individual: Time Started:: 12:00 Date: 12/28/22 Purpose of session/treatment goals addressed:: To gather information on pt's current stressors, symptoms, triggers, and tx goals. Another goal was to build rapport and provide emotional support. Eye Contact:: Good Motor Activity:: Appropriate Appearance:: Neat Speech:: Appropriate Mood:: Anxious Affect:: Congruent Thoughts:: Linear, Logical and No evidence of hallucinations/delusions noted Staff Interventions:: CBT techniques, rapport building, strengths perspective and treatment planning Client Response:: Pt responded well to session, open to meeting with therapist. Pt reports he is enjoying IOP so far, but he is worried that his problems aren't as big as other people's. Pt receptive to gentle thought challenging which helped pt recognize that everyone at [facility] is equally important. Pt shared his biggest goal for IOP is to get back to his normal level of functioning. This for pt looks like going places with his family, being active with his sons, and being independent again. Pt is also anxious about how he will do in the upcoming school year if his anxiety does not decrease. 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 Pt's anxiety worsened at the end of this previous school year and pt wants to feel better going into a new school year. Pt has a lot of support from his and pt feels that his recent medication change is already helping. Pt receptive to learning about the maintenance cycles associated with anxiety. Pt and therapist will work on identifying his own maintenance cycles next session. Risks/Concerns:: No report of thoughts of or SI. Progress Toward Goals/Plan:: Pt's first week of IOP tx. Pt reports he is enjoying the program so far and is finding benefit from peer support. Pt met with IOP psychiatrist and reviewed medications, symptoms, and stressors. Pt's current symptoms include panic attacks, ruminations, constant anxiety with avoidance, guilt, difficulty concentrating, and a checking behaviors (i.e checking pulse). Pt will continue IOP tx to prevent decompensation, increase ability to manage anxiety symptoms and triggers, and improve daily functioning. Time Stopped:: 12:20
--- NOTE | 2022-12-28 14:26 | BH.MTP ---
Master Treatment Plan Patient Information Program Physician:: Dr. Arabella Richardson Primary Therapist:: Kenya [facility] Psychiatric Diagnoses Psychiatric Diagnoses:: Panic disorder; F41.0 Generalized anxiety disorder Diagnosis Code(s):: F 41.0 Estimated LOS Estimated LOS (in weeks):: 6 Problem/Goal #1 Problem/Goal #1 Stated Goal:: Pt will reduce anxiety, avoidance, and panic while increasing ability to function on daily basis Description of Barriers: Pt does not have an outpatient therapist and will not be able to see outpatient psychiatry until May. Pt shared he has a hard time setting boundaries at work which further increases his stress levels. Pt engages in some checking behaviors that reinforce his anxiety and panic. Functional Impact: Pt is a 37-year-old male with history of JOSE and panic disorder. Pt was referred to [facility] by his PCP, Dr. Morton, due to worsening anxiety that was impacting pt's daily functioning. At admission, pt endorses constant anxiety and feelings of doom as well as racing thoughts. Pt has been to the ER twice due to fear that he is having a heart attack. Pt has been unable to drive/ride in cars due to panic. Pt reports not enjoying activities and feeling guilty that he is ruining his family's summer. Pt's symptoms are hindering pt from leaving the house at times and pt shared he is unable to be alone. Goal Relevant Strengths/Supports: Pt has strong support from his and is already finding benefit from medication. Pt is utilizing some calming skills already to manage his anxiety. Objectives Objective #1: Stated Objective: Pt will identify 2-3 anxiety triggers and 2 coping skills to use when feeling anxious to manage anxiety as shown by decreasing DSM-5 scores for anxiety. Interventions: Therapist will provide education on anxiety, avoidance behaviors, and maintenance cycles. Therapist will help pt explore personal symptoms and warning signs of anxiety and panic. Therapist will teach pt coping skills to improve emotional regulation, mindfulness, and distress tolerance to help pt cope with anxiety in the moment. Discharge Criteria: Pt will have accomplished this goal when can identify at least 2 triggers and report using 2 coping skills to manage anxiety. Additionally, pt will have accomplished this goal when DSM-5 scores show a reduction for anxiety. Target Date: 02/06/23 Review Date: 01/16/23 Status: open Objective #2: Stated Objective: Pt will reduce avoidance behaviors that reinforce anxiety by setting 1-2 small exposure goals a week to increase confidence, increase mastery, and reduce anxiety over time. Interventions: Through group and individual sessions, pt will learn about the benefits of setting exposure goals to overcome anxiety-producing situations. Therapist will help pt set SMART goals and challenge barriers. Therapist will use cognitive restructuring techniques and help pt gain awareness of negative thoughts that reinforce avoidance behaviors and fear of judgement. Therapist will help pt incorporate mindfulness, opposite action, and self-talk strategies to manage anxiety. Discharge Criteria: Pt will have accomplished this goal when can report accomplishing at least one small exposure goal a week. Additionally, pt will be able to report decreased avoidance behaviors. Target Date: 02/06/23 Review Date: 01/16/23 Status: open Problem/Goal #2 Problem/Goal #2 Stated Goal:: Pt will increase self-care practices to prevent burnout and improve functioning at work and home. Description of Barriers: Pt does not have an outpatient therapist and will not be able to see outpatient psychiatry until May. Pt shared he has a hard time setting boundaries at work which further increases his stress levels. Pt engages in some checking behaviors that reinforce his anxiety and panic. Functional Impact: Pt is a 37-year-old male with history of JOSE and panic disorder. Pt was referred to IOP by his PCP, Dr. Morton, due to worsening anxiety that was impacting pt's daily functioning. At admission, pt endorses constant anxiety and feelings of doom as well as racing thoughts. Pt has been to the ER twice due to fear that he is having a heart attack. Pt has been unable to drive/ride in cars due to panic. Pt reports not enjoying activities and feeling guilty that he is ruining his family's summer. Pt's symptoms are hindering pt from leaving the house at times and pt shared he is unable to be alone. Goal Relevant Strengths/Supports: Pt has strong support from his and is already finding benefit from medication. Pt is utilizing some calming skills already to manage his anxiety. Objectives Objective #1: Stated Objective: Pt will reduce anxiety and prevent burnout by accomplishing 2-3 small self-care goals a week. Interventions: Through group and individual sessions, pt will learn how to set small SMART goals to promote self-care and stress management. Therapist will also teach pt the different types of self-care and help pt overcome barriers to practicing self-care at work. Therapist will provide education on stress and teach pt effective stress management strategies. Discharge Criteria: Pt will have accomplished this goal when can report accomplishing at least two small goals a week. Target Date: 02/06/23 Review Date: 01/16/23 Status: open
--- NOTE | 2022-12-28 14:26 | BH.PSA ---
Source of Information Presenting Problems/Circumstances Problems, Referral Source, Mental Status, Client: Pt is a 37-year-old male with history of JOSE and panic disorder. Pt was referred to [facility] by his PCP, Dr. Morton, due to worsening anxiety that was impacting pt's daily functioning. At admission, pt endorses constant anxiety and feelings of doom as well as racing thoughts. Pt has been to the ER twice due to fear that he is having a heart attack. Pt has been unable to drive/ride in cars due to panic. Pt reports not enjoying activities and feeling guilty that he is ruining his family's summer. Pt's symptoms are hindering pt from leaving the house at times and pt shared he is unable to be alone. Psychiatric Presentation Psych Issues & Need for Admission Psychiatric Issues:: Panic disorder; F41.0 Generalized anxiety disorder Past Psychiatric History MH Treatment Hx Treatment History: No psych admits ever. No suicide attempts ever. Medications are from his primary care doctor Dr. Morton. First panic attack was end of October 2022. Denies depression ever. No psych meds except as noted above with the Lexapro and the Ativan. No counseling ever. First hospitalization:: none Most recent hospitalization:: none Medication Trials:: No ECT Therapy:: No Age of first mental health symptoms: see tx history Describe (age, circumstance, etc) any past hospitalizations: no history of hospitalizations Current providers for mental health treatment (counselor, psychiatrist, corrections caseworker, etc.): Pt is scheduled with Dr. Fraga for May 2023. No outpatient counselor currently. Pt's PCP provides medication management. Development & Family of Origin Childhood Significant Childhood Events: Pt describes his childhood as good and loving. Family Who currently lives in your home?: Pt lives with his and their two children in [place]. Describe family composition:: Pt's parents are in their 70s and he gets along well with them. Pt has one older sister and he gets along well with her as well. He got at age 24 and his marriages lasted 13 years so far and he describes it as good. He has 2 children and they are healthy. Family History Family Hx of Psychiatric or AOD Problems: Sister has depression. Parents may have anxiety and depression but they are untreated. No substance issues in the family. No suicides in the family. Ethnicity Culture Do you identify yourself with any particular cultural, ethnic background, or community?: No Sexuality Sexual Orientation: Heterosexual Mental Status Memory Recent Memory: Good Remote Memory: Good Concentration Concentration: Good Eye Contact Eye Contact: Good Speech Speech: Articulate Thought Process Thought Process: Logical and Ruminations Insight: Good Judgment: Good Behavior: Calm Orientation Orientation: Time, Person, Place and Situation Appearance Appearance: Neat/clean Mood Mood: Anxious Affect Affect: Appropriate/calm Suicide Assessment Suicidal Ideation Have you ever felt like hurting yourself?: No Suicidal Intentional Rating Scale (SIRS): No suicidal thoughts (past or present) Physician Notification Violent Behavior/Abuse History Homicidal Ideation Do you have any homicidal thoughts? If so, explain:: No Is there a known potential victim? 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 Pt is close with his , his sons, his family, and has some close friends. Substance Use Substance Substance Use Type: Alcohol (less than once a year) and Caffeine Leisure/Social Activities Interests What do you enjoy or might be interested in learning about?: Pt loves sports and being outside with his kids. 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 Service Service Have you ever been in the ?: No Legal History Records Have you had any past legal charges?: No Do you have any current legal charges?: No Have you ever been incarcerated? If yes, describe:: No Court Orders Have you had any past court orders for psychiatric treatment?: No Do you have a present court order for psychiatric treatment?: No Problem Checklist Current Problem Areas Problem List: Nutritional/Eating pattern changes, Anxiety and Additional psychosocial stressors Discharge Planning Needs Anticipated Follow-Up Primary Care Physician: Sadaf Morton Mixer Tender's Assessment Client's Needs What are the client's strengths?: Pt is intelligent, motivated, and has a strong support system. Diagnoses Diagnoses Diagnosis #1:: Panic Disorder F 41.0 Diagnosis #2:: JOSE Interpretive Summary Interpretive Summary Interpretive Summary: Pt is a 37-year-old male with a history of anxiety and panic disorder who was referred Monday by his primary care doctor to [facility] after 2 emergency visits recently for panic attacks. Pt has been for 13 years and currently lives with his and 2 children ages 10 and 6. For primary support he has his and a friend. At the end of October 2022, Pt had his first panic attack ever and went to the emergency room as he was having shortness of breath, chest tightness, increased heart rate and feelings of impending doom to the point where Pt felt like he might . 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 He has been at this job for 16 years and he loves his job and is off in the summer. At the time of the panic attack Pt was drinking diet Ixchelsis Dew at least 3, 16oz bottles a day but he has since decreased his caffeine use to 1 coffee in the morning. Pt was placed on Lexapro 5 mg after seeing his primary care doctor but Pt had another severe panic attack on November 29, 2022 and went to the emergency room again with chest tightness, shortness of breath, what he thought was decreased heart rate and feeling like something is wrong. At this second ER visit he had an EKG, chest x-ray, troponins and other work-up and all was negative and they felt it was due to anxiety. Since then, Pt states that he has had a constant feeling of impending doom and fear of having a heart attack when he did feel panicky. He began checking his pulse a lot and it began to be hard for him to drive or to be in a car since that was the site of his first panic attack. Pt was unable to be alone at one point and was waking up anxious in the morning. It was hard for him to function and do anything social due to worry about having another panic attack. Pt's father had a number of heart attacks and Pt witnessed his father having these when he was younger. Pt worries that he is ruining my family summer. He denies hopelessness, worthlessness but does endorse that he still feels guilty. Appetite was decreased but has resumed to normal now. He was anhedonic when he was having the panic attacks and going to the emergency room in November but he is now enjoying baseball and swimming again with his children. His sleep was decreased but now has improved to 7 hours a night and he is able to travel now with his family. Energy level is good now and concentration is good. He was and remains terrified of dying but he states that in the last week he has not been checking his heart rate and he is less afraid of having a heart attack although he is still worried about it somewhat. He denies passive thoughts of , suicidal ideation, plan for suicide, homicidal ideation, hallucinations, delusions or symptoms of marquis ever. He is a worrier by nature but has not had any panic attacks since 3 weeks ago and had his first 1 on November 10, 2022 in the car. He also denies any history of self-harm, OCD, eating disorder, trauma or PTSD. Family history of depression and anxiety. No abuse reported ever in pt?s life. No substance abuse. Treatment Plan Recommendations Recommendations Guidelines Recommendations:: Pt will start IOP as the structure, support, education and group therapy will hopefully prevent worsening of the symptoms. He felt safe during the interview and if it anytime he does not feel safe he will let us know or go to the emergency room. The risks, options, possible complications and side effects of the medications were discussed between Dr. Richardson and pt and he understands and accepts these. Per Dr. Richardson, pt agrees to try to limit his Ativan use over the next few weeks and take it only when absolutely needed. Pt will need outpatient counseling for after IOP.
--- NOTE | 2022-12-29 09:05 | BH.SGPN.GN ---
Behaviors/Verbalizations/Mental Status: [] Eye contact is good. Motor activity is appropriate. Appearance is casual. Speech is Appropriate. Mood is anxious. Affect is congruent. Thoughts are linear and logical. No evidence of psychosis. Reviewed daily check in sheet and no reports of suicidal ideations or intent. Client Response/Progress/Benefit: [] Pt participated at times during the group discussions. Attentive. Emotion for today is anxious. Daily symptom tracker notes /5 for anxiety. Pt able to identify a mental health win yesterday which involved being in the car for over an hour. Shared that due to his anxiety he has not been able to be in the car for long periods of time. I feel stuck and I'm scared that there is not hospital around in case of an emergency. These thoughts often lead to panic attacks. Pt is also ruminating on going back to work. Shared upcoming responsibilities and fear that he will have a panic attack or overwhelming anxiety. Group provided feedback on communicating to employer, setting boundaries, [id number] skills, taking breaks at work, and identifying cognitive distortions which was beneficial. Progress noted as he was able to manage anxiety during car ride. Will continue in IOP to prevent decompensation, stablize anxiety, and improve functioning. Narrative Note: []
--- NOTE | 2022-12-29 10:10 | BH.SGPN.GN ---
Behaviors/Verbalizations/Mental Status: []Pt alert and oriented, neatly dressed and groomed. Eye contact good. Motor activity appropriate. Speech within normal limits. Affect congruent, mood euthymic. Thoughts linear, logical, no signs of hallucinations or delusions. Client Response/Progress/Benefit: []Pt was an active participant in group discussions and activity. Attentive during psychoeducation. Pt along with peers were able to identify several negatives on the picture given to the group. Pt and peers also identified positives in the picture and made the connection that finding positives is much more difficult. Interactive discussion on the definition of perspective, how perspective is formed, and why perspective is important in treatment. Pt along with peers also identified that perspective can either motivate and encourage treatment or be a barrier to receiving help. Pt shared today his perspective is more positive and hopeful, but he still worries about his anxiety. Pt stated being more vulnerable and willing to share has helped pt develop a more positive perspective. Pt reflected that being more hopeful helps pt be more vulnerable and get support. Will continue in IOP to stabilize moods, reduce panic, and improve daily functioning. Narrative Note: []
--- NOTE | 2022-12-29 11:10 | BH.SGPN.GN ---
Behaviors/Verbalizations/Mental Status: []Pt alert and oriented, neatly dressed and groomed. Eye contact good. Motor activity appropriate. Speech within normal limits. Affect congruent, mood euthymic. Thoughts linear, logical, no signs of hallucinations or delusions. Client Response/Progress/Benefit: []Pt was attentive and contributed to small group discussion. Pt completed strengths exploration worksheet, identifying enthusiasm, love of learning, and optimism as personal strengths. Pt able to acknowledge how these strengths are helping pt and can continue to help pt in mental health journey. Pt worked with group to identify strategies that can help increase utilization of personal strengths and how to challenge one?s perspective in general. Pt identified wanting to work on journaling to help challenge perspective. Benefited from identifying personal strengths and strategies for enhancing use of identified strengths. Pt to continue IOP tx to promote mood stability, reduce anxious thoughts, and improve daily functioning. ??? Narrative Note: []
--- NOTE | 2023-01-02 09:00 | BH.SGPN.GN ---
Behaviors/Verbalizations/Mental Status: [] Eye contact is good. Motor activity is appropriate. Appearance is casual. Speech is Appropriate. Mood is euthymic. Affect is full. Thoughts are linear and logical. No evidence of psychosis. Reviewed daily check in sheet and no reports of suicidal ideations or intent. Client Response/Progress/Benefit: [] Pt participated at times during group discussions. Attentive. Emotion for today is motivated. Daily symptom tracker notes 2/5 for anxiety and pt reports his mood and functioning are improved from last week. Sahred that he started an accomplishment journal over the weekend. In the journal he is writing down his accomplishments for the day as well as 3 tasks or goals. He found that this helps with his motivation and completion of tasks. Also important for him to review his accomplishments for days past. Overall he felt that he functioned well over the weekend with no panic attacks which is progress. Benefited from group support, encouragement, and feedback. Will continue in IOP to prevent decompensation, decreased panic attacks/anxiety, and improve functioning. Narrative Note: []
--- NOTE | 2023-01-02 10:15 | BH.SGPN.GN ---
Behaviors/Verbalizations/Mental Status: []Pt alert and oriented, casually dressed and groomed. Eye contact good. Motor activity appropriate. Speech within normal limits. Affect congruent, mood euthymic and anxious. Thoughts linear, logical, no signs of hallucinations or delusions. Client Response/Progress/Benefit: []Pt responded well to session, attentive and providing to discussion. Pt connected with the quote and discussion reviewing the functions of various emotions. Attentive throughout psychoeducation on the functional role and benefits of guilt, as well as differences between appropriate and inappropriate guilt. Group discussed the harmful impacts of unmanaged guilt which included poor boundaries, feeling inadequate, and creating an unhealthy maintenance cycle. Pt participated in group activity highlighting the impacts of inappropriate guilt in team collaboration or reaching a goal. Pt then completed a self-reflection activity in which they identified their own experiences with inappropriate guilt and impacts on pt?s mental health. Shared struggling with inappropriate guilt when saying ?No? 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 Pt appeared to benefit from learning about the different types of guilt and how unmanaged guilt can impact mental health. Pt will continue IOP tx to increase mood stability, promote healthy communication with supports, and continue to improve daily functioning. Narrative Note: []
--- NOTE | 2023-01-02 11:15 | BH.SGPN.GN ---
Behaviors/Verbalizations/Mental Status: []Pt alert and oriented, neatly dressed and groomed. Eye contact good. Motor activity appropriate. Speech within normal limits. Affect congruent, mood euthymic. Thoughts linear, logical, no signs of hallucinations or delusions. Client Response/Progress/Benefit: [] Pt engaged participant AEB listening attentively to others and providing input throughout group. During challenge activity pt worked cooperatively with small group. Pt made connection that it takes patience and problem solving to work through appropriate and inappropriate guilt. Pt worked with their small group to identify strategies to manage unhealthy guilt. Pt stated pt often feels inappropriate guilt when he is doing something for himself and not helping others. Pt selected wanting to work on sticking to the boundaries he has set to challenge inappropriate guilt. Pt seemed to benefit from learning about strategies to manage appropriate and inappropriate guilt. Pt to continue IOP to improve daily functioning, reduce anxiety, and increase self-compassion. Narrative Note: []
--- NOTE | 2023-01-04 09:00 | BH.SGPN.GN ---
Behaviors/Verbalizations/Mental Status: [] Eye contact is good. Motor activity is appropriate. Appearance is casual. Speech is Appropriate. Mood is euthymic. Affect is congruent. Thoughts are linear and logical. No evidence of psychosis. Reviewed daily check in sheet and no reports of suicidal ideations or intent. Client Response/Progress/Benefit: [] Pt participated when prompted. Attentive. Daily symptom tracker notes 0/5 for depression and 2/5 for anxiety. Client reported mental health positive as being able to go out with his family every night and starting to feel more at ease when driving. Client reported additional positive as keeping up with journaling daily. Client stated he is happy to be getting out of the house more often and spending time with his family, however his stressor is that tasks/projects are starting to pile up at home. Seemed to benefit from support from peers. Client reported he Will continue in IOP to prevent decompensation, decrease anxiety, and continue use of healthy coping skills.
--- NOTE | 2023-01-04 15:04 | BH.MDN_ITS ---
Multi-Disciplinary Note Note 45-min Individual: Time Started:: 11:45 Date: 01/04/23 Purpose of session/treatment goals addressed:: To work on goal #1 objective #3 of pt's tx plan. Another goal was to provide psychoeducation on maintenance cycles. Eye Contact:: Good Motor Activity:: Appropriate Appearance:: Neat Speech:: Appropriate Mood:: Euthymic and Anxious Affect:: Congruent Thoughts:: Linear, Logical and No evidence of hallucinations/delusions noted Staff Interventions:: thought challenging, psychoeducation on: (maintenance cycles and the cognitive triangle), CBT techniques, strengths perspective, goal setting and other (homework on self-care wheel) Client Response:: Pt responded well to session, open to meeting with therapist. Pt shared he has been feeling better since starting IOP and pt feels that his medications are working. Pt enjoyed group session today which was on nutritional psychiatry. Pt stated he is working on reducing his caffeine and sugar which pt did in the past and this was helpful. Pt shared he also wants to get back to being more active which pt feels he has not done for a few years. 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 Pt is currently stressed about preparing for friends who are staying over this weekend. Pt shared he tends to get overwhelmed which leads to pt becoming more irritable. Pt also worries that the added stress will trigger panic attacks. Pt is receptive to thought challenging as well as problem-solving solutions. Pt receptive to scaling his tasks by difficulty/urgency, delegating, and reminding himself that not everything needs to be done. Discussed maintenance cycles for anxiety and how the anxious thought patterns, over-planning, and not delegating can lead to more anxiety. Pt encouraged to practice these strategies as well as sitting with the uncomfortable. Pt was given a self-care wheel for homework and pt encouraged to identify current practices and what pt wants to try to help pt function better during the school year. Risks/Concerns:: No risk noted. Pt denies thoughts of and SI. Progress Toward Goals/Plan:: Pt is demonstrating progress in IOP tx AEB his consistent attendance, self-report of applying coping skills outside IOP, and report of improving mood. Pt continues to struggle with anxiety and fear of having panic attacks. Pt also endorses excessive guilt, lack of self-confidence, feeling on edge, ruminations, and negative self-talk. Pt will continue IOP tx to promote mood stability, further improve daily functioning, and increase self- confidence. Time Stopped:: 12:30
--- NOTE | 2023-01-05 09:02 | BH.SGPN.GN ---
Behaviors/Verbalizations/Mental Status: []Pt alert and oriented, casually dressed and groomed. Eye contact fair to good. Motor activity appropriate. Speech within normal limits. Affect congruent, mood anxious and euthymic. Thoughts linear, logical, no signs of hallucinations or delusions. Reviewed pt?s symptom tracker, no reported suicidal ideation, denies plan, or active intent as of 01/05/23. Client Response/Progress/Benefit: [] Pt responded well to session, open to contributing with group and engaged. Pt reports feeling motivated this morning, explaining that he is continuing to make progress in managing his anxiety and prioritizing his values. Identified current mental health wins as challenging himself to wait to do his therapy homework until after his son?s went to bed. Shared he was able to enjoy spending time with his family and allow himself to be engaged as a result. Additional mental health win noted as checking off several items on his to-do list and feeling less stressed afterwards. Current stressor identified as anxiety about an upcoming trip to [place] and feeling worried about his anxiety will prevent him from being able to go. Pt appeared to benefit from supportive feedback and empathic responses of the group, as well as reflecting on mental health wins. Pt will continue IOP tx to promote mood stability, reduce anxiety safety behaviors, and continue to improve functioning. Narrative Note: []
--- NOTE | 2023-01-05 10:10 | BH.SGPN.GN ---
Behaviors/Verbalizations/Mental Status: [] Eye contact is good. Motor activity is appropriate. Appearance is casual. Speech is Appropriate. Mood is euthymic. Affect is full. Thoughts are linear and logical. No evidence of psychosis. Client Response/Progress/Benefit: [] Pt was an active participant in group discussions and activities. Attentive during psychoeducation. Engaged during activity in which she identified which type of foods (i.e. carbs, sugar, salt, fast food, caffeine, etc) she seeks out when sad, tired, angry, rushed, anxious, etc. Pt was able to identify an unhealthy food cycle which included; feeling stressed out --> eat to alleviate stress/pass time (usually carbs,snacks) ---> false sense of relief, need for more snacks. Pt was able to identify the impact that certain foods have on her mental health which was beneficial. Will continue in IOP to prevent decompensation, stabilize mood, , decrease anxiety, and increase healthy coping skills Narrative Note: []
--- NOTE | 2023-01-05 11:10 | BH.SGPN.GN ---
Behaviors/Verbalizations/Mental Status: []Pt alert and oriented, casually dressed and groomed. Eye contact good. Motor activity appropriate. Speech within normal limits. Affect congruent, mood euthymic. Thoughts linear, logical, no signs of hallucinations or delusions. Client Response/Progress/Benefit: []Pt was an active participant during activity and discussion AEB providing some input, connecting with peers, as well as taking notes throughout. Pt did well to engage as group worked on identifying characteristics and benefits of adopting a growth mindset. Worked with fellow participants in reframing the example fixed thoughts into growth mindset thoughts. Pt worked on changing his fixed thoughts to a growth mindset. Benefitted from discussing benefits of growth mindset and brainstorming strategies for prompting growth-mindset. Pt appeared to benefit from working in small groups to challenge own thoughts and help peers. Pt will continue IOP tx to continue use of healthy coping skills, challenge negative thinking, and prevent decompensation.
--- NOTE | 2023-01-09 09:00 | BH.SGPN.GN ---
Behaviors/Verbalizations/Mental Status: []Pt alert and oriented, casually dressed and groomed. Eye contact good. Motor activity restless. Speech within normal limits. Affect congruent, mood euthymic. Thoughts linear, logical, no signs of hallucinations or delusions. Reviewed pt?s symptom tracker, no reported suicidal ideation, denies plan, or active intent. Client Response/Progress/Benefit: [] Pt responded well to session, open to contributing with group and engaged. Per symptom tracker pt reports a 0/5 for depression and 2/5 for anxiety. Patient reported mental positive as going to an adult birthday republican despite feeling anxious it went very well. Client reported additional positive as driving home from the republican and driving to apple pick[place] his son [place] that was further away. Client stated he did feel anxious during the drive to apple pick[place] his son and chose to have his drive them home but is proud of himself for being able to drive so much. Client then if I current stressor is his dog being checked at the vet and worried that something may be wrong. Seemed to benefit from support from peers. Pt will continue IOP tx to continue engaging in exposure techniques to decrease anxiety when driving, increased healthy coping skills, and prevent decompensation.
--- NOTE | 2023-01-09 10:10 | BH.SGPN.GN ---
Behaviors/Verbalizations/Mental Status: [] Eye contact is good. Motor activity is appropriate. Appearance is casual. Speech is Appropriate. Mood is euthymic. Affect is full. Thoughts are linear and logical. No evidence of psychosis. Client Response/Progress/Benefit: [] Pt was an active participant in group discussion. Attentive during psychoeducation on SMART goals. Participated in experiential activity. Engaged during interactive discussion on the benefits of setting goals which group identified as; increase self-worth, increase confidence, can motivate us, can lead to personal growth, and can give one a sense of purpose. Participated during interactive discussion on possible obstacles to obtaining goals which involved; little patience, low motivation, feeling burned out, setting unrealistic goals, limited time, stressors, other responsibilities, negative self-talk, doubt, cognitive distortions, lack of resources, and lack of focus. Benefited from increased understanding of benefits of goals, obstacles to obtaining goals, and methods for setting appropriate goals (SMART goals). Will continue in IOP to prevent decompensation, decrease panic attacks, and increase healthy coping. Narrative Note: []
--- NOTE | 2023-01-09 11:15 | BH.SGPN.GN ---
Behaviors/Verbalizations/Mental Status: []Pt alert and oriented, casually dressed, appropriately groomed. Eye contact good. Motor activity appropriate. Speech within normal limits. Affect congruent, mood anxious and euthymic. Thoughts linear, logical, no signs of hallucinations or delusions. Client Response/Progress/Benefit: []Pt was engaged during discussion and willing to complete the worksheet challenging them to develop a personal SMART goal. Pt chose the goal of identifying 3-4 achievements as a and father daily for the next week. Pt stated this will benefit them by making them feel more confident in their own self-worth and improve ability to practice self-compassion associated with anxiety. Pt identified barriers which included negative thinking, fear of failure, low motivation, and only focusing on the physical accomplishments. Identified for negative thinking he will use opposite action and challenge himself to be more present by playing a game with his family. Pt receptive to identifying solutions for these barriers and willing to begin working on this goal. Benefited from this group by developing a short-term SMART goal related to mental health. Will continue IOP to increase self-confidence, improve consistent use of skills, and prevent decompensation. Narrative Note: []
--- NOTE | 2023-01-11 10:10 | BH.SGPN.GN ---
Behaviors/Verbalizations/Mental Status: []Client alert and oriented, casually dressed and groomed. Eye contact good. Motor activity appropriate. Speech within normal limits. Affect congruent, mood euthymic and anxious. Thoughts linear, logical, no signs of hallucinations or delusions. Client Response/Progress/Benefit: []Pt engaged in session AEB listening attentively to others and providing insight to group discussion. Pt engaged in activity, able to connect how it can be uncomfortable and difficult to accept when things are out of one?s own control. Pt worked with group to identify what things in life can be hard to accept. Group identified things hard to accept as: of a loved one, body image, loss of relationship, mental health diagnosis, other?s behaviors, and past decisions. Pt worked on identifying what personal things are hard to accept for themself, sharing struggling with his mental health, needing additional help, and past regrets are things pt struggles with accepting. Pt seemed to benefit from increased awareness of importance of acceptance. Pt to continue IOP to improve mood stability, increase application of anxiety management skills, and prevent decompensation. Narrative Note: []
--- NOTE | 2023-01-11 11:10 | BH.SGPN.GN ---
Behaviors/Verbalizations/Mental Status: []Pt alert and oriented, neatly dressed and groomed. Eye contact good. Motor activity appropriate. Speech within normal limits. Affect congruent, mood euthymic. Thoughts linear, logical, no signs of hallucinations or delusions. Client Response/Progress/Benefit: []Pt responded well to session AEB taking notes and contributing to discussion throughout. Pt engaged as group continued discussion on acceptance and the mental health benefits of practicing acceptance. Pt and peers identified what makes acceptance challenging and pt completed a self-reflection exercise on what is hard to accept in pt's life. Pt identified struggling to accept that I will have setbacks. Group identified strategies to increase acceptance and pt shared wanting to focus on continuing to use his coping skills and practice positive self-talk when she has setbacks. Pt appeared to benefit from gaining insight and learning strategies to increase acceptance. Pt will continue IOP tx to promote mood stability, continue? to combat distortions, and increase self-confidence. Narrative Note: []
--- NOTE | 2023-01-11 15:34 | BH.MDN_ITS ---
Multi-Disciplinary Note Note 45-min Individual: Time Started:: 09:15 Date: 01/11/23 Purpose of session/treatment goals addressed:: To work on improving self- care practices, combating and reframing distortions, and increasing self- compassion. Eye Contact:: Good Motor Activity:: Appropriate Appearance:: Neat Speech:: Appropriate Mood:: Anxious Affect:: Full Thoughts:: Linear, Logical and No evidence of hallucinations/delusions noted Staff Interventions:: thought challenging, CBT techniques, mindfulness skills, strengths perspective, goal setting, taught coping skills (G.L.A.D) and other (discussed difficult conversations pt wants to have with his about boundaries.) Client Response:: Pt responded well to session, open to meeting with therapist. Pt reports he completed his homework from last session and he noticed he does well in personal, spiritual, and professional self-care. However, pt shared he struggles in the areas of physical and psychological self-care, but pt is working on these areas. Pt shared he had a good weekend and he was able to drive a long distance again. Pt processed a recent stressor that happened between pt and his which helped pt gain awareness of the expectations he has about self-care. Pt gained insight that he does not always allow himself to engage in his hobbies, rest, or not be productive because when I don't work over the summer I feel like I have to do everything while I'm home and my is working. Pt stated his will at times be passive with pt about her feelings which then leads to anxiety and mind-reading for pt. Pt feels anxious to talk to his about his feelings and establishing realistic expectations because I'm not a boat rocker. Pt can see the impact not communicating with his has on pt's mental health and pt is willing to identify difficult conversations he wants to have. Pt also receptive to practicing G.L.A.D with his family as a way to connect and active his love of learning. Risks/Concerns:: No report of thoughts of or suicidal ideations. Progress Toward Goals/Plan:: Pt continues to make progress towards tx goals AEB pt's self-report of implementing healthy coping skills outside of IOP tx. Pt is struggling with accepting that setbacks will occur in treatment as pt recently had a panic attack. Pt reports he can still see progress in his ability to cope and bounce back from setbacks. Pt's anxiety is resolving, but still impacting pt's overall functioning and mood. Pt is anxious about returning to work in a few weeks and an upcoming trip this weekend. Pt will continue IOP tx to promote mood stability, further decrease anxiety and negative thinking, and improve daily functioning. Time Stopped:: 09:55
--- NOTE | 2023-01-12 10:10 | BH.SGPN.GN ---
Behaviors/Verbalizations/Mental Status: []Pt alert and oriented, casually dressed and appearing disheveled/ungroomed. Eye contact good. Motor activity appropriate. Speech within normal limits. Affect congruent, mood euthymic and anxious. Thoughts linear, logical, no signs of hallucinations or delusions. Client Response/Progress/Benefit: []Pt was an active participant AEB providing input and was actively taking notes. Did well to participate and provide suggestions in group activity. Connected with the topic of pitfalls and listened to group discussion on internal and external barriers that prevent from choosing a healthier path to mental wellness. Group worked together to identify examples of personal internal pitfalls and pt identified his as people pleasing, self-sabotage, and negative self-talk. Pt benefited from group as Pt learned to better identify and normalize potential barriers to improving mental health symptoms. Pt will continue IOP tx to prevent decompensation, increase mood management skills, and continue to promote healthy communication and boundary setting with supports. Narrative Note: []
--- NOTE | 2023-01-12 11:10 | BH.SGPN.GN ---
Behaviors/Verbalizations/Mental Status: []Pt alert and oriented, casually dressed and groomed. Eye contact good. Motor activity appropriate. Speech within normal limits. Affect congruent. Mood euthymic. Thoughts linear, logical, no signs of hallucinations or delusions. Client Response/Progress/Benefit: []Pt was an active participant AEB contribution to discussion, taking notes, and willingness to engage in group activity. Connected with the topic of pitfalls and listened to group discussion on internal and external barriers that prevent from choosing a healthier path to mental wellness. Group worked together to identify examples of internal pitfalls. Pt identified personal pitfalls to include: self-sabotage, negative self-talk, people pleasing, overcompensating, lack of communication, and guilt.Pt benefited from group as Pt learned to better identify and normalize potential barriers to improving mental health symptoms. Pt to continue IOP to continue use of anxiety reduction skills, decrease avoidance, and prevent decompensation.
--- NOTE | 2023-01-16 09:00 | BH.SGPN.GN ---
Behaviors/Verbalizations/Mental Status: [] Eye contact is good. Motor activity is appropriate. Appearance is casual. Speech is Appropriate. Mood is anxious. Affect is congruent. Thoughts are linear and logical. No evidence of psychosis. Reviewed daily check in sheet and no reports of suicidal ideations or intent Client Response/Progress/Benefit: [] Pt was an active participant in group discussion. Attentive. Provided appropriate feedback. Daily symptom tracker notes 08/21 for anxiety. Shared with the group that his anxiety did not keep him from participating in family events this weekend. He was able to drive to and from a family event and only had a small panic attack. Proud of himself for his ability to identify his anxiety increasing and then utilize skills to calm and not allow his thoughts to exacerbate his anxiety. Increased confidence in his ability to manage his anxiety. I'm not frozen anymore. I'm proud of my progress. Shared that a month ago he was not able to drive and when he had a panic attacks he would catastrophize to the point of going to the ER. Progress noted per pt report. Benefited from group support, encouragement, and feedback. Will continue in IOP to prevent decompensation, stabilize anxiety, and improve functioning. Narrative Note: []
--- NOTE | 2023-01-16 10:15 | BH.SGPN.GN ---
Behaviors/Verbalizations/Mental Status: []Pt alert and oriented, neatly dressed and groomed. Eye contact good. Motor activity appropriate. Speech within normal limits. Affect congruent, mood euthymic. Thoughts linear, logical, no signs of hallucinations or delusions. Client Response/Progress/Benefit: [] Pt was an active participant in group discussions and activities. Attentive during psychoeducation. Pt listened during interactive discussion in which the group defined self-care and discussed its benefits. ?Worked with peers in a small group to identify myths related to self-care which included; Self-care should only be done when ?you?re empty? and that not everyone deserves it. Pt participated in small groups where they worked to bust these self-care myths. Benefited from increased awareness of self-care, its benefits, and the consequences of not utilizing self-care strategies. Pt shared he struggles with self-care ?because I tell myself it has to work in everyone?s schedule.? Will continue IOP tx to promote mood stability, increase self-compassion, and further reduce negative thinking patterns. Narrative Note: []
--- NOTE | 2023-01-16 11:15 | BH.SGPN.GN ---
Behaviors/Verbalizations/Mental Status: []Pt alert and oriented, neatly dressed and groomed. Eye contact good. Motor activity appropriate. Speech within normal limits. Affect congruent, mood euthymic. Thoughts linear, logical, no signs of hallucinations or delusions. Client Response/Progress/Benefit: [] Pt engaged participant AEB completing self-assessment worksheet and providing input throughout discussion. Participated in group discussion on the various areas of self-care. Pt completed worksheet identifying current self-care practices and what self-care activities pt wants to start using. Pt selected physical self-care to begin practicing more consistently. Pt plans to do this by working on his food journal, understanding his food boundaries, and setting goals for exercise. Appeared to benefit from completing the self-care evaluation and gaining insights into current self-care practices, as well as identifying areas in which pt would like to improve upon.? Pt will continue IOP tx to promote mood stability, further decrease panic attacks, and improve self-compassion. Narrative Note: []
== END 2023-01-16 23:59 ==
LOC: BHIOP 08:00
PROVIDERS: PCP Nurse Practitioner Family; Visit Provider Psychiatry & Neurology Psychiatry
DX: F41.0 Panic disorder [episodic paroxysmal anxiety] (principal); F41.1 Generalized anxiety disorder
CPT/HCPCS: S9480; 90832; 90834; 90853

== ENCOUNTER 2023-01-17 07:17 | Outpatient (RCR) | payer OTHER, SELFPAY ==
--- NOTE | 2023-01-12 09:00 | BH.SGPN.GN ---
Behaviors/Verbalizations/Mental Status: [] Eye contact is good. Motor activity is appropriate. Appearance is casual. Speech is Appropriate. Mood is anxious. Affect is congruent. Thoughts are linear and logical. No evidence of psychosis. Reviewed daily check in sheet and no reports of suicidal ideations or intent. Client Response/Progress/Benefit: [] Active participant in group discussion. Attentive. Daily symptom tracker notes /5 for anxiety. Emotion for today is ?optimistic?. Shared that his overall functioning has improved. Anxiety is not interfering as much with daily life. ? I?m driving more?. Decreased panic attacks. Shared certain skills that have been helpful in managing anxious thoughts. Progress noted per pt report. Benefited from group support, encouragement, and feedback. Will continue in IOP to prevent decompensation, decrease anxiety/panic, and increase healthy coping skills. Narrative Note: []
[2023-01-17 00:41] VITALS: BP 162/96; PULSE 66
--- NOTE | 2023-01-18 09:03 | BH.SGPN.GN ---
Behaviors/Verbalizations/Mental Status: []Pt alert and oriented, casually dressed and groomed. Eye contact good. Motor activity appropriate. Speech within normal limits. Affect congruent, mood euthymic, anxious. Thoughts linear, logical, no signs of hallucinations or delusions. Reviewed pt?s symptom tracker, no reported suicidal ideation, denies plan, or active intent as of 01/18/23. Client Response/Progress/Benefit: []Pt responded well to session, open to contributing to group and engaged. Pt reports feeling optimistic but anxious this morning as he is returning to work soon. Identified current mental health wins as speaking with his boss about returning to work and collaborating on a plan that would best support his mental health needs. Additional win noted as continuing to make progress in challenging unrealistic expectations of himself through positive self-talk and thought challenging. 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 Discussed skill he is using to manage his stress such as exercising, reaching out to supports, and using grounding skills. Pt appeared to benefit from supportive feedback of the group, as well as reflecting on mental health wins. Pt will continue IOP tx to promote mood stability, encourage continued coping skill application, and prevent decompensation. Narrative Note: []
--- NOTE | 2023-01-18 10:10 | BH.SGPN.GN ---
Behaviors/Verbalizations/Mental Status: [] Eye contact is good. Motor activity is appropriate. Appearance is casual. Speech is Appropriate. Mood is euthymic. Affect is congruent. Thoughts are linear and logical. No evidence of psychosis or hallucinations. Client Response/Progress/Benefit: [] Pt was an active participant in group discussion and activity. Attentive during psychoeducation. Along with peers was able to identify barriers to taking action on her mental health which included: fear of failure, the unknown, change, one's environment, past negative experiences, being passive, and fear of vulnerability. Identified several symptoms and stressors that he feels are holding him back from progress such as people pleasing, fear of vulnerability, fear letting family down, and physical symptoms of anxiety. Benefited from increased self-awareness of obstacles. Will continue in IOP to decrease anxiety, increase healthy coping skills, and prevent decompensation.
--- NOTE | 2023-01-18 10:52 | PCM.BH.PN_ITS ---
Progress Note Progress Note: And history of Present Illness/Interim History: The patient is a 37-year-old male with a history of anxiety and panic disorder who is seen in follow- up at the [facility] behavioral health IOP program. I last saw the patient 3 weeks ago and at that time no medication changes were made today as they were changed recently. The patient feels he is learning valuable skills in the program and trying to apply them. According to the staff he is engaged in the program and doing well and making progress. The patient states that he feels better currently and less anxious. He is able to not panic as much when he feels anxious and has not had a panic attack for several weeks now. He is a little stressed and nervous that school starts in the next 2 weeks but he thinks actually he may do okay because when he is busy at school it helps him not get stuck in his head worrying too much. The patient is still requiring the Ativan 3 times in the past week when out in public 0.5 mg. He is checking his heart rate much less now. He denies passive thoughts of , suicidal ideation, plan for suicide, homicidal ideation, hallucinations or delusions. Current Psychiatric Medications: [] Lexapro 10 mg p.o. daily (on this for 5 weeks now); Ativan 0.5 mg p.o. as needed for panic attack (took it 3 times in the past week when out in public). Mental Status Examination: [] The patient is a 37-year-old male who is obese and wearing glasses and appears casually dressed and groomed with good hygiene. He appears normal for stated age and is ambulatory with a normal gait. He has no psychomotor agitation or retardation. Eye contact is good and speech is normal rate and rhythm and fluent with no pressure. Mood is anxious. Affect is full and normal. Thought process is goal-directed and organized. Thought content: There remains evidence that the patient is afraid of dying but less so than several weeks ago. There is no evidence of passive thoughts of , suicidal ideation, plan for suicide, homicidal ideation, hallucinations or delusions. Reality testing is intact. Intelligence is above average. Judgment is intact. Insight is good. Impulsivity is moderate. Diagnoses: [] 1. Panic disorder 2. Generalized anxiety disorder 3. Work and health issues Plan: [] The patient will continue the IOP program at [facility] as the structure, support, education and group therapy will hopefully prevent worsening of the patient's symptoms. He felt safe during the interview and if it anytime he does not feel safe he will let us know or go to the emergency room. The risks, options, possible complications and side effects of the medications were again discussed with the patient and he understands and accepts these. The patient agrees to increase his Lexapro to 20 mg p.o. daily as he is still requiring the Ativan 3 times a week lately. He understands the goal is to not need the Ativan except on very rare occasions. Prescription is sent in for the increased dose of Lexapro at 20 mg p.o. daily. He will continue to follow-up with his outpatient providers and I will see the patient in follow-up in 2 to 3 weeks and as needed.
--- NOTE | 2023-01-18 11:10 | BH.SGPN.GN ---
Behaviors/Verbalizations/Mental Status: []Pt alert and oriented, neatly dressed and groomed. Eye contact good. Motor activity appropriate. Speech within normal limits. Affect congruent, mood euthymic. Thoughts linear, logical, no signs of hallucinations or delusions. Client Response/Progress/Benefit: []Pt responded well to session, taking notes and participating in worksheet discussion. Pt connected with the zones of action/change and that making sustainable change comes from stepping out of one?s comfort zone into the learning zone. Pt set a goal to gain control over pt?s fear of physical symptoms of anxiety. Pt reported plans to challenge self to practice his calming skills like deep breathing 2-3 times a week. Pt identified support pt will need as ?my trusty binder? and relaxing apps on his phone. Appeared to benefit from identifying a small goal to benefit mental health. Will continue IOP tx to promote gains, further reduce anxiety and panic attacks, and increase self-confidence. Narrative Note: []
--- NOTE | 2023-01-19 09:00 | BH.SGPN.GN ---
Behaviors/Verbalizations/Mental Status: [] Pt alert and oriented, neatly dressed and groomed. Eye contact good. Motor activity appropriate. Speech within normal limits. Affect congruent, mood euthymic. Thoughts linear, logical, no signs of hallucinations or delusions. Reviewed pt?s symptom tracker, no risk for suicidal ideation, plan, or intent 01/19/23 Client Response/Progress/Benefit: []Pt responded well to session, attentive and receptive to feedback. Pt reports feeling positive this morning as pt continues to see progress in his mental health symptoms management. 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 Pt shared he is still not feeling quite myself but he is getting closer and closer. 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 Pt appeared to benefit from connecting with peers and challenging perspective. Pt will continue IOP tx to promote mood stability, further increase self-confidence, and improve boundary setting skills. Narrative Note: []
--- NOTE | 2023-01-19 10:10 | BH.SGPN.GN ---
Behaviors/Verbalizations/Mental Status: [] Eye contact is good. Motor activity is appropriate. Appearance is casual. Speech is Appropriate. Mood is euthymic. Affect is congruent. Thoughts are linear and logical. No evidence of psychosis. Client Response/Progress/Benefit: [] Pt was an active participant in group discussion. Attentive during psychoeducation on Problem-Solving in the Moment Protocol. Participated in group experiential activity. Pt provided feedback during interactive group discussion in which pt and peers worked through an example of a problem (Managing Anxiety) in which they identified a goal (minimizing anxiety) and identified barriers. Barriers identified included fear, past experiences, lack of motivation, external obstacles, and stigma. During the experiential activity pt worked with peers to problem solve using the Problem Solving in the Moment Protocol. Group was able to complete the activity and pt was able to practice in the moment problem-solving and make connections between problem-solving for activity and in real-life situations. Increased awareness of problem-solving strategies. Will continue in IOP to increase anxiety reduction skills, challenge distortions, and prevent decompensation.
--- NOTE | 2023-01-19 11:10 | BH.SGPN.GN ---
Behaviors/Verbalizations/Mental Status: []Pt alert and oriented, casual dress, hygiene tended to. Eye contact good. Motor activity WNL. Speech appropriate rate and tone. Affect congruent, mood anxious and euthymic.? Thoughts linear, logical, no signs of hallucinations or delusions. Client Response/Progress/Benefit: []Pt engaged in session as evidenced by listening to others and providing input throughout. Pt completed problem solving example with group and identified a goal they want to work on. Goal identified as: improving overall self-worth. Pt?s barriers included: negative thinking/distortions, people pleasing, fear of failure, past negative experiences. Pt also identified steps they could take such as taking a healthy packed lunch to work each day, exercise 3x a week, positive affirmations, avoiding the scale, and reaching out to supports for help. Pt seemed to benefit from learning about problem solving methods and rehearsing problem-solving skills in the moment. Pt will continue IOP tx to promote mood stability, improve confidence in self, and further reduce negative thinking. Narrative Note: []
--- NOTE | 2023-01-19 13:40 | BH.MDN ---
Multi-Disciplinary Note Note 45-min Individual: Time Started:: 12:00 Date: 01/19/23 Purpose of session/treatment goals addressed:: To work on reducing negative thinking and build confidence as pt gets ready to return to work. Eye Contact:: Good Motor Activity:: Appropriate Appearance:: Neat Speech:: Appropriate Mood:: Anxious Affect:: Congruent Thoughts:: Linear, Logical and No evidence of hallucinations/delusions noted Staff Interventions:: thought challenging, psychoeducation on: (Lees mind), CBT techniques, discharge planning, strengths perspective, reviewed DSM-5 and taught coping skills Client Response:: Pt responded well to session, open to meeting with therapist. Pt reports he has been doing well and he sees progress, but he currently is struggling with feeling like he is letting down IOP staff, and himself, by having to discharge early. Pt receptive to thought challenging using lees mind techniques. 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 Pt shared while in IOP he has made progress, but he also notices there's a lot to keep working on. Discussed how pt can do this in outpatient therapy and it is normal to have things to keep working towards. Pt shared he has gained awareness of his negative self-image, his difficulty sitting with the uncomfortable, people pleasing, and difficulty setting boundaries. Pt has made some progress and reminded that he can be doing well and want to improve. Pt shared his medication was recently increased and pt feels positively about this. Pt receptive to cognitive restructuring, self-compassion, and lees mind. Pt encouraged to talk with his boss about next week and to practice using his lees mind when he become negative towards self. Risks/Concerns:: Pt denies any suicidal ideations. No thoughts of . Progress Toward Goals/Plan:: Per pt's DSM-5 and self-report, pt is making significant progress since starting IOP tx three weeks ago. Pt's overall DSM-5 scores have decreased by 71% and anxiety has decreased by 75%. 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 Receptive to plan for treatment next week and pt will discharge next Monday. Pt understands that he and therapist will need to find pt an outpatient provider before he discharges. Pt will attend one group session next week and come in for one individual session as well. Time Stopped:: 12:43
--- NOTE | 2023-01-19 13:50 | BH.TPR ---
Treatment Plan Review Demographics Date of Admission:: 12/26/22 Date of Treatment Plan Review:: 01/19/23 Admitting Diagnoses:: Panic disorder; F41.0 Generalized anxiety disorder Current Diagnoses:: Panic disorder; F41.0 Generalized anxiety disorder Patient Status Patient's Response to Treatment:: Pt has responded well to treatment AEB pt consistently attending IOP sessions and reduction of overall DSM-5 symptoms by 71% since admission. Pt contributes well during individual sessions and is highly engaged during group sessions. Pt applies coping skills outside of IOP and reports overall mood and functioning have significantly improved. Status of Current Problems and Symptoms: Pt's symptoms have resolved significantly since admission, but pt is gaining more insight to his negative beliefs of self which has been causing some distress. 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 Pt can continue to work on combatting distortions, improving self-compassion, and increasing boundary setting skills while combating guilt. Progress Problem #1: Problem Name:: Anxiety, avoidance, and panic attacks Status of Goals:: Objective 1-complete with ongoing work encouraged. Pt?s DSM-5 scores for anxiety have decreased by 75% since admission and pt reports increasing confidence in her ability to challenge thoughts and manage physical symptoms. Objective 2- in progress. Pt is actively working on setting boundaries, increasing the amount of times he drives places per week, and doing more social events. Pt has had some panic attacks since admission, but of much less frequency. Team Recommendations:: Treatment tx encourages pt to continue working on this treatment goal to further reduce avoidance, increase self-confidence and mastery, and gain positive feedback. Pt's Lexapro was also recently increased with the hopes this will reduce pt's need for his PRN anxiety medications. Pt encouraged to continue practicing self-compassion when faced with struggles. Problem #2: Problem Name:: Lack of self-care and burnout. Status of Goals:: Objective 1- in progress. Pt recently completed the self-care group and did a self-care assessment. Pt is working on verbalizing his needs with his , co-workers, and boss. Pt has communicated with his boss and pt feels less anxious about returning to school because they have come up with a system. Team Recommendations:: Pt is encouraged to continue working on this tx goal and to continue working on this with his future outpatient therapist. Pt wants to continue to challenge himself to sit with the uncomfortable.
--- NOTE | 2023-01-26 08:21 | BH.MDN ---
Multi-Disciplinary Note Note 60-min Individual: Time Started:: 14:30 Date: 01/25/23 Purpose of session/treatment goals addressed:: To process current stressors, discuss aftercare and complete maintenance plan, and review healthy coping skills. Eye Contact:: Good Motor Activity:: Appropriate Appearance:: Neat Speech:: Appropriate Mood:: Euthymic and Anxious Affect:: Congruent Thoughts:: Linear, Logical and No evidence of hallucinations/delusions noted Staff Interventions:: thought challenging, motivational interviewing, CBT techniques, discharge planning, strengths perspective and other (completed a maintenance plan) Client Response:: Pt responded well to session, open to meeting with therapist. Pt reports the first week back to school for [employer] has gone really well. Pt is still having some anxiety, but he feels he is able to manage it well. Pt shared his biggest worry is falling back into old patterns of thinking and having more setbacks when he returns to his full-time routine. Pt receptive to completing a maintenance plan and discussing additional strategies to promote wellbeing. Pt shared he plans to have time for self-care each day after school and he has a plan for if he becomes overwhelmed at school. Pt able to identify his triggers, warning signs, and coping skills for panic attacks and anxiety. 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 Pt also gained awareness that it will be important for pt to reach out for help early rather than when he already anxious to prevent further spiraling. Pt also reviewed grounding skills he could use, thought challenging techniques, and self-compassion. Pt stated he has more things to talk to his about that will promote his gains. Pt given options for therapists and pt will look over the options tonight. Risks/Concerns:: No SI, plan, or intent. No thoughts of . 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 Pt reports his first week back at [employer] has gone very well and he is able to manage anxiety. Pt is anxious about returning to old, unhelpful habits once he is back to school so he was receptive to the maintenance plan. Pt was provided options for outpatient therapy and plans to call to set up appointments this week. Pt will continue IOP tx for once more day to reinforce healthy coping skills and establish aftercare. Time Stopped:: 15:25
--- NOTE | 2023-01-27 09:00 | BH.SGPN.GN ---
Behaviors/Verbalizations/Mental Status: [] Eye contact is good. Motor activity is appropriate. Appearance is casual. Speech is Appropriate. Mood is euthymic. Affect is full. Thoughts are linear and logical. No evidence of psychosis. Reviewed daily check in sheet and no reports of suicidal ideations or intent. Client Response/Progress/Benefit: [] Pt was an active participant in group discussions. Attentive. Daily symptom tracker notes 06/23 for anxiety. Pt returned to work this past week and reports which anxiety producing at times did not have any panic attacks. Co-workers have been supportive and overall he is excited. Shared that today is is last day in [employer] and overall believe the program has been very helpful. Reports benefits from education and support feeling that he is overall healthier and shared a few of the changes that he has made since entering [employer] [facility]. Benefited from group support, encouragement, and feedback. Will be discharged from [facility] today. Narrative Note: []
--- NOTE | 2023-01-27 10:10 | BH.SGPN.GN ---
Behaviors/Verbalizations/Mental Status: []Eye contact is good. Alert and oriented. Motor activity is appropriate. Appearance is casual. grooming is appropriate. Speech is Appropriate. Mood is euthymic and anxious. Affect is congruent. Thoughts are linear and logical. No evidence of psychosis or hallucinations. Client Response/Progress/Benefit: []Client was an active participate AEB providing contributions, listening attentively to others, and taking notes throughout. The group identified the impact of emotions on communication such as change in tone, body language, shutting down, misperceiving the communication, and not being able to express oneself. During group activity, client identified feeling anxious when he was trying to communicate information as he didn?t want to share something wrong or not soon enough. Client benefited from session by gaining an increased understanding on the importance of managing emotions to improve daily functioning. Client will d/c from IOP tx given progress made overall and continue with individual outpatient counseling. Narrative Note: []
--- NOTE | 2023-01-27 11:10 | BH.SGPN.GN ---
Behaviors/Verbalizations/Mental Status: []Pt alert and oriented, casually dressed and groomed. Eye contact good. Motor activity appropriate. Speech within normal limits. Affect congruent, mood euthymic. Thoughts linear, logical, no signs of hallucinations or delusions. Client Response/Progress/Benefit: [] Pt engaged in session AEB Pt listening attentively to peers and providing input. Attentive during psychoeducation on 4 zones of regulation. Pt able to identify feelings and behaviors for each zone. Pt identified coping skills one can use to support self in each zone. Pt reports majority of the time he is in the yellow and blue zones. Reported skills can practice when needs to manage emotions in the yellow zone include: thought challenge, exercise, 5 senses, reaching out, and healthy eating. Benefited from increased education on zones of regulation or stages of alertness for emotions and healthy coping skills to use for each zone. Pt has made significant progress since starting IOP and will discharge from program today.
--- NOTE | 2023-01-27 11:36 | BH.IGGP_ITS ---
Aftercare Plan Demographics Treatment End Date:: 01/27/23 Psychiatrist:: Arabella Richardson Psychiatrist Office #:: [id number] [facility]/IOP Therapist:: Kenya Leigh Therapist Phone #:: [phone] Medications Home Medications albuterol sulfate 90 mcg/actuation aerosol inhaler (Ventolin HFA) 1 - 2 puff inhalation Q4H PRN PRN Wheezing #1 ea 11/29/22 lorazepam 0.5 mg tablet 0.5 mg PO DAILY 11/29/22 balsalazide 750 mg capsule 2,250 mg PO TID PRN PRN UC 12/28/22 escitalopram oxalate 20 mg tablet (Lexapro) 20 mg PO DAILY 30 days #30 tabs 01/18/23 Plan Details Progress/Aftercare Plan Details:: John has responded well to treatment as evidenced by John consistently attending IOP sessions and his reduction of DSM- 5 scores by 95% since admission. Pt was always attentive and receptive to learning during group and individual sessions. Pt actively applied coping skills outside of IOP, reports overall his mood is improved, and he is functioning better than he was several months ago. John?s overall symptom reduction is 95% since admission with anger decreasing by 100%, depression decreasing by 100%, and anxiety decreasing by 88%. John has increased self-confidence in his ability to manage anxiety and panic attacks. John did well with learning to give himself credit and challenge negative thought patterns. John will continue with Dr. Fraga for medication management and Alicia Wilde for outpatient counseling. Strategies for Success:: 1. Opposite action! Continue to break that cycle of anxiety and depression by getting up and getting going. 2. Remember that thoughts are thoughts NOT facts! You have power in if you give thoughts the time of day or not. 3. self-care! You deserve to take time for you and you also deserve to face the not so fun self-care 4. Self-compassion! You are human and you will make a mistake?BUT that doesn?t mean you are a failure or not good enough. Give yourself credit for all the wonderful things you do. 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 Practice deep breathing, calming self-talk, and Snoop Dogg affirmations 7. Practice positive self-talk and keep track of your wins. 8. Remember progress isn?t linear! You may have a setback or bump in the road, but that doesn?t mean you?ve lost all progress. 9. Continue to communicate and challenge negative self-talk 10. Live in the torres!! Appointments Appointments/Referrals to Other Services:: 1. Dr. Fraga for medication management in May. 2. Alicia Wilde for outpatient counseling. Called and left a message today for scheduling.
--- NOTE | 2023-01-27 12:01 | BH.DS ---
Discharge Summary Demographics Date of Admission:: 12/26/22 Discharge Date: 01/27/23 Presenting Problems at Admission:: Pt is a 37-year-old male with history of JOSE and panic disorder. Pt was referred to [facility] by his PCP, Dr. Morton, due to worsening anxiety that was impacting pt's daily functioning. At admission, pt endorses constant anxiety and feelings of doom as well as racing thoughts. Pt has been to the ER twice due to fear that he is having a heart attack. Pt has been unable to drive/ride in cars due to panic. Pt reports not enjoying activities and feeling guilty that he is ruining his family's summer. Pt's symptoms are hindering pt from leaving the house at times and pt shared he is unable to be alone. Discharge Diagnoses:: Panic disorder; F41.0 Generalized anxiety disorder Reason for Discharge:: Pt has completed his tx goals AEB pt's self-report of improved functioning and mood as well as his 95% symptom reduction per the DSM-5. 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 Treatment Progress During Treatment & Response: Pt has responded well to treatment as evidenced by Pt consistently attending IOP sessions and his reduction of DSM-5 scores by 95% since admission. Pt was always attentive and receptive to learning during group and individual sessions. Pt actively applied coping skills outside of IOP, reports overall his mood is improved, and he is functioning better than he was several months ago. Pt?s overall symptom reduction is 95% since admission with anger decreasing by 100%, depression decreasing by 100%, and anxiety decreasing by 88%. Pt has increased self-confidence in his ability to manage anxiety and panic attacks. Pt did well with learning to give himself credit and challenge negative thought patterns. Pt will continue with Dr. Fraga for medication management and Alicia Wilde for outpatient counseling. Issues Still to be Addressed:: Pt can benefit from ongoing coping skills maintenance to manage panic and anxiety, boundary setting, self-care implementation, challenging negative thoughts, and continuing to communicate assertively. Discharge Recommendations/Instructions:: Pt plans to see Dr. Fraga for medication management and pt is currently scheduled for May, but he is on the cancelation list so it could be sooner. Pt called Alicia Wilde at [facility] and is waiting to hear back to schedule an appointment for outpatient counseling. Pt will check-in with this therapist next week to see how the first week of school went. Discharge Handout
== END 2023-01-27 12:07 | disposition home or self-care (01) ==
LOC: BHIOP 07:17
PROVIDERS: PCP Nurse Practitioner Family; Visit Provider Psychiatry & Neurology Psychiatry
DX: F41.0 Panic disorder [episodic paroxysmal anxiety] (principal); F41.1 Generalized anxiety disorder
CPT/HCPCS: S9480; 90834; 90837; 90853

== ENCOUNTER → 2024-01-26 | Outpatient (CLI) | payer OTHER, SELFPAY ==
--- NOTE | 2024-01-26 07:13 | US_ITS ---
INDICATION: Right upper quadrant pain EXAMINATION: Ultrasound US Abdomen RUQ (limited) TECHNIQUE: Barba scale and color doppler imaging was performed of the right upper quadrant. COMPARISON: No relevant prior comparison study available FINDINGS: LIVER: The liver is normal in size and shape with mildly increased echogenicity. No focal hepatic lesion. No intrahepatic biliary ductal dilatation. There is no free fluid. GALLBLADDER AND BILIARY TREE: Normally distended gallbladder. No shadowing gallstone, pericholecystic fluid or gallbladder wall thickening. The proximal common bile duct measures 0.6 cm, which is within normal limits for the patient''s age. Songraphic Marsh''s sign: Negative. PANCREAS: Not seen due to bowel gas. RIGHT KIDNEY: The right kidney measures 11.6 cm. No hydronephrosis or nephrolithiasis. No renal mass. US/Abdomen Limited IMPRESSION: No acute sonographic abnormality is demonstrated in the right upper quadrant. Mild hepatic steatosis. Electronically Signed: Ozzie Archer MD at 14:47 EDT ,
== END | disposition home or self-care (01) ==
PROVIDERS: PCP Nurse Practitioner Family; Referring Provider Nurse Practitioner Family; Visit Provider Nurse Practitioner Family
DX: R10.11 Right upper quadrant pain (principal)
CPT/HCPCS: 76705